=== PATIENT | female | born 1965 | race Caucasian/White ===

== ENCOUNTER 2018-12-25 21:23 | Emergency (ER) | payer BC ==
--- NOTE | 2018-12-25 21:56 | EDM.PDOC ---
ED HPI GENERAL MEDICAL PROBLEM - General Chief Complaint: Chest Pain Stated Complaint: CHEST PAIN THAT RADIATES LEFT SIDE NECK Time Seen by Provider: 12/25/18 21:30 Source of Information: Reports: Patient, Family (Daughter) History Limitations: Reports: No Limitations - History of Present Illness INITIAL COMMENTS - FREE TEXT/NARRATIVE: The patient states that she developed retrosternal chest discomfort, that she describes as a "mild pain", although a discomfort, not a pain, that radiates to her upper left shoulder/left side of her neck, on 12/22/2018. The discomfort comes and goes, lasting only a few seconds, then recurring every 5- 10 minutes to 1 hour. She has not identified any modifiers, such as with position, deep breaths, eating, or going to the bathroom. She notes that the symptoms are less frequent at night. When present, she feels dyspneic, although she denies associated nausea, diaphoresis, or sense of impending doom. She notes , however, that she has had an upset stomach all week, and she also notes that she has been feeling very anxious and shaky all week. No prior similar symptoms. The patient has not taken any [id number] home remedies to try to treat her symptoms. No prior medical evaluation for these symptoms. The patient states that she came tonight, because she discussed her symptoms with her daughter, who is a DESIGN INTERN and her daughter made her come. The patient does not have a PCP. Her Insurance Licensing Supervisor is Dr. Kiya Stoddard. Chest Pain Score (Numeric/FACES): 3 - Related Data Allergies Allergy/AdvReac Type Severity Reaction Status Date / Time Sulfa (Sulfonamide Allergy Rash Verified 12/25/18 22:18 Antibiotics) Home Meds: Home Meds Cholecalciferol (Vitamin D3) [Vitamin D3] 1,000 unit PO DAILY 12/25/18 [History] Cinnamon Bark [Cinnamon] 1 tab PO BID 12/25/18 [History] DULoxetine [Cymbalta] 60 mg PO DAILY 12/25/18 [History] Multivit-Min/Iron/Folic/Lutein [Multivitamin Women 50 Plus Tab] 1 tab PO DAILY 12/25/18 [History] [place]-3/DHA/Epa/Fish Oil [[place] 3 500 Softgel] 1 tab PO BID 12/25/18 [History] Propranolol [Inderal] 120 mg PO DAILY 12/25/18 [History] Vitamin B Complex [B Complex] 1 tab PO BID 12/25/18 [History] Past Medical History HEENT History: Reports: Hard of Hearing (Congenital sensorineural) Musculoskeletal History: Reports: Fracture (right forearm, 2007) Neurological History: Reports: Other (See Below) (Essential tremor) Psychiatric History: Reports: Anxiety, Depression Endocrine/Metabolic History: Reports: Obesity/BMI 30+ - Past Surgical History HEENT Surgical History: Reports: Oral Surgery (wisdom teeth extraction, Dec 2014 ), Tonsillectomy (1988) Neurological Surgical History: Reports: Lumbar Spine (laminectomy and discectomy , Apr 2009) Oncologic Surgical History: Reports: Biopsy of Breast (right, Mar 2015) Social & Family History - Tobacco Use Smoking Status *Q: Never Smoker - Alcohol Use Alcohol Use History: No - Recreational Drug Use Recreational Drug Use: No - Living Situation & Occupation Living situation: Reports: , with Family (Daughter & son) 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 ED EXAM, GENERAL - Physical Exam Exam: See Below Exam Limited By: No Limitations General Appearance: Alert, WD/WN, Anxious Eye Exam: Bilateral Eye: EOMI, Normal Inspection Ears: Normal External Exam, Hearing Loss Nose: Normal Inspection Throat/Mouth: Normal Inspection, Normal Lips, Normal Voice, No Airway Compromise Head: Atraumatic, Normocephalic, Other (Erythema noted to left side of face) Neck: Normal Inspection, Full Range of Motion Respiratory/Chest: No Respiratory Distress, Lungs Clear, Normal Breath Sounds, No Accessory Muscle Use, Chest Non-Tender (palpation of sternum does not reproduce presenting discomfort) Cardiovascular: Normal Peripheral Pulses, Regular Rate, Rhythm, No Edema, No Gallop, No JVD, No Murmur, No Rub Peripheral Pulses: 4+: Radial (L), Radial (R) GI/Abdominal: Normal Bowel Sounds, Soft, Non-Tender, No Organomegaly, No Distention, No Abnormal Bruit, No Mass, Other (Obese) (Female) Exam: Deferred Rectal (Female) Exam: Deferred Back Exam: Normal Inspection, Full Range of Motion, NT Extremities: Normal Inspection, Normal Range of Motion, No Pedal Edema, Normal Capillary Refill Neurological: Alert, Oriented, Normal Cognition, No Motor/Sensory Deficits, Other (Tremulous) Psychiatric: Anxious Skin Exam: Warm, Dry, Intact EKG INTERPRETATION EKG Date: 12/25/18 Time: 21:29 Rhythm: NSR Rate (Beats/Min): 77 [place]: Normal P-Wave: Present QRS: Normal ST-T: Depressed ([address] depression V3-V6, but no T-wave inversions) QT: Prolonged (QTc 499 ms) Comparison: NA - No Prior EKG Course - Vital Signs Last Recorded V/S: Last Vital Signs Temp 36.6 C 12/25/18 21:31 Pulse 76 12/25/18 21:31 Resp 20 12/25/18 21:31 BP 115/73 12/25/18 21:31 Pulse Ox 99 12/25/18 21:31 - Orders/Labs/Meds Orders: Active Orders 24 hr Category Date Time Status EKG Documentation Completion [RC] STAT Care 12/25/18 21:34 Active Chest 2V [CR] Stat Exams 12/25/18 21:54 Taken Labs: Laboratory Tests 12/25/18 12/25/18 12/25/18 Range/Units 21:30 21:30 21:30 WBC 15.14 H (3.98-10.04) K/mm3 RBC 4.93 (3.98-5.22) M/mm3 Hgb 13.5 (11.2-15.7) gm/L Hct 41.2 (34.1-44.9) % MCV 83.6 (79.4-94.8) fl MCH 27.4 (25.6-32.2) pg MCHC 32.8 (32.2-35.5) g/dl RDW Std Deviation 45.3 (36.4-46.3) fL Plt Count 289 (182-369) K/mm3 MPV 9.6 (9.4-12.3) fl Neut % (Auto) 36.4 (34.0-71.1) % Lymph % (Auto) 54.0 H (19.3-51.7) % [place] % (Auto) 7.3 (4.7-12.5) % Eos % (Auto) 1.3 (0.7-5.8) Baso % (Auto) 0.7 (0.1-1.2) % Neut # (Auto) 5.53 (1.56-6.13) K/mm3 Lymph # (Auto) 8.18 H (1.18-3.74) K/mm3 [place] # (Auto) 1.10 H (0.24-0.36) K/mm3 Eos # (Auto) 0.19 (0.04-0.36) K/mm3 Baso # (Auto) 0.10 H (0.01-0.08) K/mm3 Manual Slide Review Abnormal smear D-Dimer, Quantitative 0.40 (0.19-0.50) mg/L Sodium 141 (136-145) mEq/L Potassium 4.1 (3.5-5.1) mEq/L Chloride 105 (98-107) mEq/L Carbon Dioxide 30 (21-32) mEq/L Anion Gap 10.1 (5-15) BUN 18 (7-18) mg/dL Creatinine 1.0 (0.55-1.02) mg/dL Est Cr Clr Drug Dosing 59.51 mL/min Estimated GFR (MDRD) 58 (>60) mL/min BUN/Creatinine Ratio 18.0 (14-18) Glucose 126 H (74-106) mg/dL Calcium 9.4 (8.5-10.1) mg/dL Total Bilirubin 0.6 (0.2-1.0) mg/dL AST 21 (15-37) U/L ALT 26 (14-59) U/L Alkaline Phosphatase 181 H (46-116) U/L Troponin I < 0.017 (0.00-0.056) ng/mL Total Protein 8.0 (6.4-8.2) g/dl Albumin 3.7 (3.4-5.0) g/dl Globulin 4.3 gm/dL Albumin/Globulin Ratio 0.9 L (1-2) - Re-Assessments/Exams Free Text/Narrative Re-Assessment/Exam: 12/25/18 21:55 There are some features of the patient's chest discomfort that are concerning that this may be anginal. Her ECG shows subtle ST depressions in the anterolateral leads, although there are no T-wave inversions. I have ordered a workup that includes blood work and a chest x-ray. 12/25/18 22:29 2-view chest radiograph appears to be grossly normal. The cardiac silhouette is within normal limits. No pulmonary vascular congestion. No pleural effusions. No focal infiltrate. No pneumothorax. Formal read per the Radiologist pending. 12/25/18 22:36 The patient's CBC is remarkable for WBC count mildly elevated at 15.14, with the remainder of the CBC being unremarkable. Her CMP is remarkable for a blood glucose mildly elevated 126, and an alkaline phosphatase mildly elevated 181, with the remainder of the CMP being unremarkable. Her troponin is undetectably low. Her D-dimer is within normal limits at 0.40. 12/25/18 22:43 Test results discussed with the patient and her daughter. Today's workup is unremarkable, and does not explain the cause of her presenting symptoms. I explained to them that just because the workup is negative does not mean that the patient's symptoms are not cardiac in etiology, and for that reason, I offered to place the patient into observation in order to undergo a cardiac stress test tomorrow. The patient would prefer to go home, call the clinic first thing in the morning, then be seen sometime tomorrow, and have an outpatient cardiac stress test. I will therefore discharge the patient home. Departure - Departure Time of Disposition: 22:46 Disposition: Home, Self-Care 01 Condition: Good Clinical Impression: Chest pain of uncertain etiology Instructions: Nonspecific Chest Pain, [id number] Referrals: Jesus Carrizales MD [Physician] - Kiya Stoddard MD [Physician] - Forms: ED Department Discharge Additional Instructions: You were seen in the emergency room for on and off chest discomfort radiating to your left shoulder and neck, along with shortness of breath, coming and going since 12/22/2018. Workup in the ER included blood work, a chest x-ray, and an ECG. Your entire workup was unremarkable, and does not explain the cause of your symptoms. As explained, a negative workup does not mean that your symptoms are not due to your heart. Placement observation for a cardiac stress test tomorrow was offered , but declined. We recommend that you follow-up with Dr. Jimenez, or one of the other providers in the clinic, tomorrow, 12/26/2018, to arrange for an outpatient cardiac stress test. Call first thing tomorrow morning to make an appointment. If any other problems, please do not hesitate to return to the ER. - My Orders Last 24 Hours: My Active Orders 12/25/18 21:34 EKG Documentation Completion [RC] STAT 12/25/18 21:54 Chest 2V [CR] Stat - Assessment/Plan Last 24 Hours: My Active Orders 12/25/18 21:34 EKG Documentation Completion [RC] STAT 12/25/18 21:54 Chest 2V [CR] Stat
--- NOTE | 2018-12-26 08:32 | CR ---
Chest: Two views of the chest were obtained. Comparison: No previous chest x-ray is available. Heart size and mediastinum are normal. Minimal linear density compatible with slight atelectasis is noted within the lateral left costophrenic angle. No acute parenchymal change is seen within either lung. Slight degenerative change is scattered within the spine. Previous cervical spine surgery is noted. Impression: 1. Findings as noted above believed to be incidental. 2. Nothing acute is appreciated. Diagnostic code #2
== END 2018-12-25 23:10 | disposition home or self-care (01) ==
LOC: JD.ED 21:23
DX: R07.89 Other chest pain (principal); F41.9 Anxiety disorder, unspecified; F32.9 Major depressive disorder, single episode, unspecified; Z88.2 Allergy status to sulfonamides; Z79.899 Other long term (current) drug therapy
CPT/HCPCS: 36415; 71046; 71046-26; 80053; 84484; 85025; 85379; 93005; 99285-25

== ENCOUNTER 2020-08-01 12:48 | Inpatient (IN) | payer BC, MEDICAID ==
[2020-08-01] MEDS ORDERED: Sodium Chloride 0.9% 10 ML Syringe FLUSH PRN (13:33)
[2020-08-01] MEDS ORDERED: Sodium Chloride 0.9% 1,000 ML IV SCH (13:45)
--- NOTE | 2020-08-01 14:20 | CR ---
Chest: Portable view of the chest was obtained. Comparison: Prior chest x-ray of 12/25/18. Patchy areas of increased density are seen on both sides of the chest, worse on the right side. Heart size and mediastinum are normal. No acute osseous abnormality is appreciated. Prior cervical spine surgery is noted. Impression: 1. Diffuse areas of increased density on both sides of the chest, worse on the right side. Please correlate if this represents COVID pneumonia. 2. Other stable findings as noted above. Diagnostic code #3
--- NOTE | 2020-08-01 15:11 | EDM.PDOC ---
ED HPI GENERAL MEDICAL PROBLEM - General Chief Complaint: Respiratory Problem Stated Complaint: COVID EXPOSURE Time Seen by Provider: 08/01/20 13:15 Source of Information: Reports: Patient History Limitations: Reports: No Limitations - History of Present Illness INITIAL COMMENTS - FREE TEXT/NARRATIVE: The patient presents with a cough, body aches, fever, chills and generalized weakness. She also has been passing out. She did not hit her head or hurt her neck. She was exposed to someone with COVID 19. She has not been tested. She needed help getting back to the room. She has a history of hearing loss and tremor. She has some nausea. She has not been eating or drinking much. She has no chest pain but she is short of breath. Onset: Gradual Duration: Week(s): Location: Reports: Generalized Quality: Reports: Ache Severity: Moderate Improves with: Reports: None Worsens with: Reports: None Associated Symptoms: Reports: Cough, Fever/Chills, Nausea/Vomiting, Shortness of Breath. Denies: Chest Pain, Headaches - Related Data Allergies Allergy/AdvReac Type Severity Reaction Status Date / Time Sulfa (Sulfonamide Allergy Rash Verified 08/01/20 13:06 Antibiotics) Home Meds: Home Meds Cholecalciferol (Vitamin D3) [Vitamin D3] 1,000 unit PO DAILY 12/25/18 [History] Cinnamon Bark [Cinnamon] 1 tab PO BID 12/25/18 [History] DULoxetine [Cymbalta] 60 mg PO DAILY 12/25/18 [History] Multivit-Min/Iron/Folic/Lutein [Multivitamin Women 50 Plus Tab] 1 tab PO DAILY 12/25/18 [History] [place]-3/DHA/Epa/Fish Oil [[place] 3 500 Softgel] 1 tab PO BID 12/25/18 [History] Propranolol [Inderal] 120 mg PO DAILY 12/25/18 [History] Vitamin B Complex [B Complex] 1 tab PO BID 12/25/18 [History] Past Medical History HEENT History: Reports: Hard of Hearing UNSTACKER History: Reports: Other (See Below) Other UNSTACKER History: benign lumps removed from breast Musculoskeletal History: Reports: Fracture Other Musculoskeletal History: back surgery Neurological History: Reports: Other (See Below) Other Neuro History: familiar tremors Psychiatric History: Reports: Anxiety, Depression Endocrine/Metabolic History: Reports: Obesity/BMI 30+ - Infectious Disease History Infectious Disease History: Reports: Chicken Pox, Influenza - Past Surgical History HEENT Surgical History: Reports: Oral Surgery, Tonsillectomy Neurological Surgical History: Reports: Lumbar Spine Oncologic Surgical History: Reports: Biopsy of Breast Social & Family History - Tobacco Use Tobacco Use Status *Q: Never Tobacco User Second Hand Smoke Exposure: No - Caffeine Use Caffeine Use: Reports: Tea - Recreational Drug Use Recreational Drug Use: No - Living Situation & Occupation Living situation: Reports: , with Family (Daughter & son) 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 Denies: Chest Pain Endocrine: Reports: No Symptoms GI/Abdominal: Reports: Nausea. Denies: Abdominal Pain, Vomiting : Reports: No Symptoms Musculoskeletal: Reports: No Symptoms ED EXAM, GENERAL - Physical Exam Exam: See Below Exam Limited By: No Limitations General Appearance: Alert, No Apparent Distress Ears: Normal External Exam Nose: Normal Inspection Head: Atraumatic, Normocephalic Neck: Normal Inspection Respiratory/Chest: No Respiratory Distress, Normal Breath Sounds, Rhonchi Cardiovascular: Regular Rate, Rhythm, No Edema, No Murmur GI/Abdominal: Soft, Non-Tender, No Organomegaly, No Mass Back Exam: Normal Inspection Extremities: Normal Inspection #1 Interpretation EKG Date: 08/01/20 Time: 14:01 Rhythm: NSR Rate (Beats/Min): 84 [place]: Normal P-Wave: Present QRS: Normal ST-T: Normal QT: Normal Course - Vital Signs Last Recorded V/S: Last Vital Signs Temp 99.3 F 08/01/20 12:58 Pulse 80 08/01/20 12:58 Resp 16 08/01/20 12:58 BP 118/67 08/01/20 12:58 Pulse Ox 100 08/01/20 15:21 - Orders/Labs/Meds Orders: Active Orders 24 hr Category Date Time Status Cardiac Monitoring [RC] . DIRECTED Care 08/01/20 13:33 Active EKG Documentation Completion [RC] STAT Care 08/01/20 13:34 Active Oxygen Therapy [RC] PRN Care 08/01/20 13:33 Active Peripheral IV Care [RC] . DIRECTED Care 08/01/20 13:33 Active Sodium Chloride 0.9% [Normal Saline] 1,000 ml Med 08/01/20 13:45 Active IV .BOLUS Sodium Chloride 0.9% [Saline Flush] Med 08/01/20 13:33 Active 10 ml FLUSH ASDIRECTED PRN Peripheral IV Insertion Adult [OM.PC] Stat Oth 08/01/20 13:33 Ordered Medication Orders Sodium Chloride (Normal Saline) 1,000 mls @ 1,000 mls/hr IV .BOLUS HEMA Last Admin: 08/01/20 13:45 Dose: 1,000 mls/hr Documented by: KJ Sodium Chloride (Sodium Chloride 0.9% 10 Ml Syringe) 10 ml FLUSH ASDIRECTED PRN PRN Reason: Keep Vein Open Last Admin: 08/01/20 13:43 Dose: 10 ml Documented by: KJ Labs: Laboratory Tests 08/01/20 08/01/20 08/01/20 Range/Units 13:13 13:13 13:13 WBC 5.99 (3.98-10.04) K/mm3 RBC 4.41 (3.98-5.22) M/mm3 Hgb 12.0 D (11.2-15.7) gm/dl Hct 38.2 (34.1-44.9) % MCV 86.6 D (79.4-94.8) fl MCH 27.2 (25.6-32.2) pg MCHC 31.4 L (32.2-35.5) g/dl RDW Std Deviation 43.4 (36.4-46.3) fL Plt Count 246 (182-369) K/mm3 MPV 9.8 (9.4-12.3) fl Neut % (Auto) 53.7 (34.0-71.1) % Lymph % (Auto) 31.9 (19.3-51.7) % [place] % (Auto) 13.0 H (4.7-12.5) % Eos % (Auto) 0.8 (0.7-5.8) Baso % (Auto) 0.3 (0.1-1.2) % Neut # (Auto) 3.21 (1.56-6.13) K/mm3 Lymph # (Auto) 1.91 (1.18-3.74) K/mm3 [place] # (Auto) 0.78 H (0.24-0.36) K/mm3 Eos # (Auto) 0.05 (0.04-0.36) K/mm3 Baso # (Auto) 0.02 (0.01-0.08) K/mm3 PT 10.9 (9.7-12.0) SECONDS INR 1.02 APTT 28.0 (21.7-31.4) SECONDS D-Dimer, Quantitative 0.46 (0.19-0.50) mg/L Sodium 134 L (136-145) mEq/L Potassium 4.6 (3.5-5.1) mEq/L Chloride 96 L (98-107) mEq/L Carbon Dioxide 29 (21-32) mEq/L Anion Gap 13.6 (5-15) BUN 18 (7-18) mg/dL Creatinine 1.1 H (0.55-1.02) mg/dL Est Cr Clr Drug Dosing 52.82 mL/min Estimated GFR (MDRD) 51 (>60) mL/min BUN/Creatinine Ratio 16.4 (14-18) Glucose 136 H (74-106) mg/dL Lactic Acid (0.4-2.0) mmol/L Calcium 8.6 (8.5-10.1) mg/dL Magnesium 2.0 (1.8-2.4) mg/dl Ferritin (8-252) ng/ml Total Bilirubin 0.7 (0.2-1.0) mg/dL AST 36 (15-37) U/L ALT 40 (14-59) U/L Alkaline Phosphatase 119 H (46-116) U/L Lactate Dehydrogenase 258 H (81-234) U/L C-Reactive Protein 15.2 H* (<1.0) mg/dL Total Protein 7.3 (6.4-8.2) g/dl Albumin 2.8 L (3.4-5.0) g/dl Globulin 4.5 gm/dL Albumin/Globulin Ratio 0.6 L (1-2) Urine Color (Yellow) Urine Appearance (Clear) Urine pH (5.0-8.0) Ur Specific [place] (1.005-1.030) Urine Protein (Negative) Urine Glucose (UA) (Negative) Urine Ketones (Negative) Urine Occult Blood (Negative) Urine Nitrite (Negative) Urine Bilirubin (Negative) Urine Urobilinogen (0.2-1.0) Ur Leukocyte Esterase (Negative) Urine RBC (0-5) /hpf Urine WBC (0-5) /hpf Ur Epithelial Cells (0-5) /hpf Urine Bacteria (FEW) /hpf Urine Mucus (FEW) /hpf SARS-CoV-2 RNA (CURTIS) (NEGATIVE) 08/01/20 08/01/20 08/01/20 Range/Units 13:13 13:46 13:59 WBC (3.98-10.04) K/mm3 RBC (3.98-5.22) M/mm3 Hgb (11.2-15.7) gm/dl Hct (34.1-44.9) % MCV (79.4-94.8) fl MCH (25.6-32.2) pg MCHC (32.2-35.5) g/dl RDW Std Deviation (36.4-46.3) fL Plt Count (182-369) K/mm3 MPV (9.4-12.3) fl Neut % (Auto) (34.0-71.1) % Lymph % (Auto) (19.3-51.7) % [place] % (Auto) (4.7-12.5) % Eos % (Auto) (0.7-5.8) Baso % (Auto) (0.1-1.2) % Neut # (Auto) (1.56-6.13) K/mm3 Lymph # (Auto) (1.18-3.74) K/mm3 [place] # (Auto) (0.24-0.36) K/mm3 Eos # (Auto) (0.04-0.36) K/mm3 Baso # (Auto) (0.01-0.08) K/mm3 PT (9.7-12.0) SECONDS INR APTT (21.7-31.4) SECONDS D-Dimer, Quantitative (0.19-0.50) mg/L Sodium (136-145) mEq/L Potassium (3.5-5.1) mEq/L Chloride (98-107) mEq/L Carbon Dioxide (21-32) mEq/L Anion Gap (5-15) BUN (7-18) mg/dL Creatinine (0.55-1.02) mg/dL Est Cr Clr Drug Dosing mL/min Estimated GFR (MDRD) (>60) mL/min BUN/Creatinine Ratio (14-18) Glucose (74-106) mg/dL Lactic Acid 1.6 (0.4-2.0) mmol/L Calcium (8.5-10.1) mg/dL Magnesium (1.8-2.4) mg/dl Ferritin 133 (8-252) ng/ml Total Bilirubin (0.2-1.0) mg/dL AST (15-37) U/L ALT (14-59) U/L Alkaline Phosphatase (46-116) U/L Lactate Dehydrogenase (81-234) U/L C-Reactive Protein (<1.0) mg/dL Total Protein (6.4-8.2) g/dl Albumin (3.4-5.0) g/dl Globulin gm/dL Albumin/Globulin Ratio (1-2) Urine Color (Yellow) Urine Appearance (Clear) Urine pH (5.0-8.0) Ur Specific [place] (1.005-1.030) Urine Protein (Negative) Urine Glucose (UA) (Negative) Urine Ketones (Negative) Urine Occult Blood (Negative) Urine Nitrite (Negative) Urine Bilirubin (Negative) Urine Urobilinogen (0.2-1.0) Ur Leukocyte Esterase (Negative) Urine RBC (0-5) /hpf Urine WBC (0-5) /hpf Ur Epithelial Cells (0-5) /hpf Urine Bacteria (FEW) /hpf Urine Mucus (FEW) /hpf SARS-CoV-2 RNA (CURTIS) Positive H (NEGATIVE) 08/01/20 Range/Units 15:10 WBC (3.98-10.04) K/mm3 RBC (3.98-5.22) M/mm3 Hgb (11.2-15.7) gm/dl Hct (34.1-44.9) % MCV (79.4-94.8) fl MCH (25.6-32.2) pg MCHC (32.2-35.5) g/dl RDW Std Deviation (36.4-46.3) fL Plt Count (182-369) K/mm3 MPV (9.4-12.3) fl Neut % (Auto) (34.0-71.1) % Lymph % (Auto) (19.3-51.7) % [place] % (Auto) (4.7-12.5) % Eos % (Auto) (0.7-5.8) Baso % (Auto) (0.1-1.2) % Neut # (Auto) (1.56-6.13) K/mm3 Lymph # (Auto) (1.18-3.74) K/mm3 [place] # (Auto) (0.24-0.36) K/mm3 Eos # (Auto) (0.04-0.36) K/mm3 Baso # (Auto) (0.01-0.08) K/mm3 PT (9.7-12.0) SECONDS INR APTT (21.7-31.4) SECONDS D-Dimer, Quantitative (0.19-0.50) mg/L Sodium (136-145) mEq/L Potassium (3.5-5.1) mEq/L Chloride (98-107) mEq/L Carbon Dioxide (21-32) mEq/L Anion Gap (5-15) BUN (7-18) mg/dL Creatinine (0.55-1.02) mg/dL Est Cr Clr Drug Dosing mL/min Estimated GFR (MDRD) (>60) mL/min BUN/Creatinine Ratio (14-18) Glucose (74-106) mg/dL Lactic Acid (0.4-2.0) mmol/L Calcium (8.5-10.1) mg/dL Magnesium (1.8-2.4) mg/dl Ferritin (8-252) ng/ml Total Bilirubin (0.2-1.0) mg/dL AST (15-37) U/L ALT (14-59) U/L Alkaline Phosphatase (46-116) U/L Lactate Dehydrogenase (81-234) U/L C-Reactive Protein (<1.0) mg/dL Total Protein (6.4-8.2) g/dl Albumin (3.4-5.0) g/dl Globulin gm/dL Albumin/Globulin Ratio (1-2) Urine Color Dark yellow (Yellow) Urine Appearance Slt cloudy H (Clear) Urine pH 6.0 (5.0-8.0) Ur Specific [place] 1.025 (1.005-1.030) Urine Protein 1+ H (Negative) Urine Glucose (UA) Negative (Negative) Urine Ketones Negative (Negative) Urine Occult Blood Negative (Negative) Urine Nitrite Negative (Negative) Urine Bilirubin Negative (Negative) Urine Urobilinogen 1.0 (0.2-1.0) Ur Leukocyte Esterase 1+ H (Negative) Urine RBC 5-10 H (0-5) /hpf Urine WBC 10-20 H (0-5) /hpf Ur Epithelial Cells 5-10 H (0-5) /hpf Urine Bacteria Moderate H (FEW) /hpf Urine Mucus Few (FEW) /hpf SARS-CoV-2 RNA (CURTIS) (NEGATIVE) Meds: Medications Generic Name Dose Route Start Last Admin Trade Name Freq PRN Reason Stop Dose Admin Sodium Chloride 1,000 mls @ 1,000 mls/hr 08/01/20 13:45 08/01/20 13:45 Normal Saline IV 1,000 mls/hr .BOLUS HEMA Administration Sodium Chloride 10 ml 08/01/20 13:33 08/01/20 13:43 Sodium Chloride 0.9% 10 Ml Syringe FLUSH 10 ml ASDIRECTED PRN Administration Keep Vein Open - Re-Assessments/Exams Free Text/Narrative Re-Assessment/Exam: 08/01/20 15:11 I ordered a CXR, labs, IV NS bolus. 08/01/20 16:05 Her CBC looks good. Her D-dimer is negative. Her PT and PTT look good. Her Na is low at 134. Her creatinine is 1.1. Her glucose is 136. Her lactic acid is normal. Her CRP is 15.2. Her alk phos is elevated at 114. Her LDH is elevated at 258. Her CXR shows diffuse areas of increased density on both sides of the chest worse on the right side. Please correlate if this represents COVID pneumonia. She was COVID 19 positive. 08/01/20 16:11 She gave us a urine sample. When she got up to use the camode her oxygen saturations dropped to 84%. I feel she needs to be admitted. I called Dr Paris and he agreed to the admission. I ordered remdesivir and dexamethasone. Departure - Departure Time of Disposition: 16:15 Disposition: Admitted As Inpatient 64 Condition: Fair Clinical Impression: Hypoxia, COVID-19, Pneumonia due to COVID-19 virus - Discharge Information Referrals: PCP,None [Primary Care Provider] - Forms: ED Department Discharge Sepsis Event Note (ED) - Evaluation Sepsis Screening Result: No Definite Risk - Focused Exam Vital Signs: Vital Signs Temp Pulse Resp BP Pulse Ox Pulse Ox 08/01/20 15:21 100 08/01/20 12:58 99.3 F 80 16 118/67 100 - My Orders Last 24 Hours: My Active Orders 08/01/20 13:33 Cardiac Monitoring [RC] . DIRECTED Oxygen Therapy [RC] PRN Peripheral IV Care [RC] . DIRECTED Sodium Chloride 0.9% [Saline Flush] 10 ml FLUSH ASDIRECTED PRN Peripheral IV Insertion Adult [OM.PC] Stat 08/01/20 13:34 EKG Documentation Completion [RC] STAT 08/01/20 13:45 Sodium Chloride 0.9% [Normal Saline] 1,000 ml IV .BOLUS - Assessment/Plan Last 24 Hours: My Active Orders 08/01/20 13:33 Cardiac Monitoring [RC] . DIRECTED Oxygen Therapy [RC] PRN Peripheral IV Care [RC] . DIRECTED Sodium Chloride 0.9% [Saline Flush] 10 ml FLUSH ASDIRECTED PRN Peripheral IV Insertion Adult [OM.PC] Stat 08/01/20 13:34 EKG Documentation Completion [RC] STAT 08/01/20 13:45 Sodium Chloride 0.9% [Normal Saline] 1,000 ml IV .BOLUS
[2020-08-01] MEDS ORDERED: REMDESIVIR 200 MG in Sodium Chloride 0.9% 250 ML IV ONE ×2 (16:10→16:45)
[2020-08-01] MEDS ORDERED: Dexamethasone 4 MG/ML SDV IVPUSH ONE (16:10)
[2020-08-01] MEDS ORDERED: Acetaminophen 325 MG Tab PO PRN (17:25)
[2020-08-01] MEDS ORDERED: Ondansetron 4 MG/2 ML SDV IV PRN (17:25)
[2020-08-01] MEDS ORDERED: Ibuprofen 600 MG Tab PO PRN (17:25)
[2020-08-01] MEDS ORDERED: Benzonatate 100 MG Cap PO PRN (17:35)
[2020-08-01] MEDS ORDERED: Codeine/guaiFENesin 10-100 MG/5 ML Syrup 5 ML Cup PO PRN (17:35)
[2020-08-01] MEDS ORDERED: Albuterol 6.7 GM Inhaler INH PRN (17:36)
[2020-08-01] MEDS: Cholecalciferol (Vitamin D3) 5,000 UNIT Cap PO SCH (18:29)
[2020-08-01] MEDS: Aspirin 325 MG Tab.EC PO SCH (18:29)
[2020-08-01] MEDS: cefTRIAXone 2 GM in Sodium Chloride 0.9% 100 ML IV SCH (18:29)
[2020-08-01] MEDS: Zinc Sulfate 220 MG Cap PO SCH (18:29)
--- NOTE | 2020-08-01 19:05 | PCM.PN ---
- General Info Date of Service: 08/01/20 Admission Dx/Problem (Free Text): COVID-19 positive test (U07.1, COVID-19) with Acute Pneumonia (J12.89, Other viral pneumonia) Subjective Update: 55-year-old female with 2-week history of cough, body aches, fever, chills, generalized weakness. Patient states that she was exposed to a family with Covid approximately that time. Recent she is coughed so hard that she has been passing out. She has not had any head or neck injury secondary to falls. She has decreased appetite and some nausea. She denies any chest pain, shortness of breath, or palpitations. Generalized malaise and weakness has become severe over the last few days. Functional Status: Reports: Pain Controlled - Review of Systems General: Reports: Weakness, Fatigue HEENT: Reports: No Symptoms Pulmonary: Reports: No Symptoms Cardiovascular: Reports: No Symptoms Gastrointestinal: Reports: No Symptoms Skin: Reports: No Symptoms Neurological: Reports: No Symptoms Psychiatric: Reports: No Symptoms - Patient Data Vitals - Most Recent: Last Vital Signs Temp 99.3 F 08/01/20 17:57 Pulse 80 08/01/20 17:57 Resp 20 08/01/20 17:57 BP 112/48 L 08/01/20 17:57 Pulse Ox 100 08/01/20 17:57 Weight - Most Recent: 187 lb Lab Results Last 24 Hours: Laboratory Results - last 24 hr 08/01/20 08/01/20 08/01/20 Range/Units 13:13 13:13 13:13 WBC 5.99 (3.98-10.04) K/mm3 RBC 4.41 (3.98-5.22) M/mm3 Hgb 12.0 D (11.2-15.7) gm/dl Hct 38.2 (34.1-44.9) % MCV 86.6 D (79.4-94.8) fl MCH 27.2 (25.6-32.2) pg MCHC 31.4 L (32.2-35.5) g/dl RDW Std Deviation 43.4 (36.4-46.3) fL Plt Count 246 (182-369) K/mm3 MPV 9.8 (9.4-12.3) fl Neut % (Auto) 53.7 (34.0-71.1) % Lymph % (Auto) 31.9 (19.3-51.7) % Bailey % (Auto) 13.0 H (4.7-12.5) % Eos % (Auto) 0.8 (0.7-5.8) Baso % (Auto) 0.3 (0.1-1.2) % Neut # (Auto) 3.21 (1.56-6.13) K/mm3 Lymph # (Auto) 1.91 (1.18-3.74) K/mm3 Bailey # (Auto) 0.78 H (0.24-0.36) K/mm3 Eos # (Auto) 0.05 (0.04-0.36) K/mm3 Baso # (Auto) 0.02 (0.01-0.08) K/mm3 PT 10.9 (9.7-12.0) SECONDS INR 1.02 APTT 28.0 (21.7-31.4) SECONDS D-Dimer, Quantitative 0.46 (0.19-0.50) mg/L Sodium 134 L (136-145) mEq/L Potassium 4.6 (3.5-5.1) mEq/L Chloride 96 L (98-107) mEq/L Carbon Dioxide 29 (21-32) mEq/L Anion Gap 13.6 (5-15) BUN 18 (7-18) mg/dL Creatinine 1.1 H (0.55-1.02) mg/dL Est Cr Clr Drug Dosing 52.82 mL/min Estimated GFR (MDRD) 51 (>60) mL/min BUN/Creatinine Ratio 16.4 (14-18) Glucose 136 H (74-106) mg/dL Lactic Acid (0.4-2.0) mmol/L Calcium 8.6 (8.5-10.1) mg/dL Magnesium 2.0 (1.8-2.4) mg/dl Ferritin (8-252) ng/ml Total Bilirubin 0.7 (0.2-1.0) mg/dL Direct Bilirubin (0.0-0.2) mg/dl Indirect Bilirubin AST 36 (15-37) U/L ALT 40 (14-59) U/L Alkaline Phosphatase 119 H (46-116) U/L Lactate Dehydrogenase 258 H (81-234) U/L C-Reactive Protein 15.2 H* (<1.0) mg/dL Total Protein 7.3 (6.4-8.2) g/dl Albumin 2.8 L (3.4-5.0) g/dl Globulin 4.5 gm/dL Albumin/Globulin Ratio 0.6 L (1-2) Urine Color (Yellow) Urine Appearance (Clear) Urine pH (5.0-8.0) Ur Specific [place] (1.005-1.030) Urine Protein (Negative) Urine Glucose (UA) (Negative) Urine Ketones (Negative) Urine Occult Blood (Negative) Urine Nitrite (Negative) Urine Bilirubin (Negative) Urine Urobilinogen (0.2-1.0) Ur Leukocyte Esterase (Negative) Urine RBC (0-5) /hpf Urine WBC (0-5) /hpf Ur Epithelial Cells (0-5) /hpf Urine Bacteria (FEW) /hpf Urine Mucus (FEW) /hpf SARS-CoV-2 RNA (CURTIS) (NEGATIVE) 08/01/20 08/01/20 08/01/20 Range/Units 13:13 13:13 13:46 WBC (3.98-10.04) K/mm3 RBC (3.98-5.22) M/mm3 Hgb (11.2-15.7) gm/dl Hct (34.1-44.9) % MCV (79.4-94.8) fl MCH (25.6-32.2) pg MCHC (32.2-35.5) g/dl RDW Std Deviation (36.4-46.3) fL Plt Count (182-369) K/mm3 MPV (9.4-12.3) fl Neut % (Auto) (34.0-71.1) % Lymph % (Auto) (19.3-51.7) % Bailey % (Auto) (4.7-12.5) % Eos % (Auto) (0.7-5.8) Baso % (Auto) (0.1-1.2) % Neut # (Auto) (1.56-6.13) K/mm3 Lymph # (Auto) (1.18-3.74) K/mm3 Bailey # (Auto) (0.24-0.36) K/mm3 Eos # (Auto) (0.04-0.36) K/mm3 Baso # (Auto) (0.01-0.08) K/mm3 PT (9.7-12.0) SECONDS INR APTT (21.7-31.4) SECONDS D-Dimer, Quantitative (0.19-0.50) mg/L Sodium (136-145) mEq/L Potassium (3.5-5.1) mEq/L Chloride (98-107) mEq/L Carbon Dioxide (21-32) mEq/L Anion Gap (5-15) BUN (7-18) mg/dL Creatinine (0.55-1.02) mg/dL Est Cr Clr Drug Dosing mL/min Estimated GFR (MDRD) (>60) mL/min BUN/Creatinine Ratio (14-18) Glucose (74-106) mg/dL Lactic Acid (0.4-2.0) mmol/L Calcium (8.5-10.1) mg/dL Magnesium (1.8-2.4) mg/dl Ferritin 133 (8-252) ng/ml Total Bilirubin 0.7 (0.2-1.0) mg/dL Direct Bilirubin 0.10 (0.0-0.2) mg/dl Indirect Bilirubin 0.60 AST 40 H (15-37) U/L ALT 41 (14-59) U/L Alkaline Phosphatase 120 H (46-116) U/L Lactate Dehydrogenase (81-234) U/L C-Reactive Protein (<1.0) mg/dL Total Protein 7.4 (6.4-8.2) g/dl Albumin 2.8 L (3.4-5.0) g/dl Globulin 4.6 gm/dL Albumin/Globulin Ratio 0.6 L (1-2) Urine Color (Yellow) Urine Appearance (Clear) Urine pH (5.0-8.0) Ur Specific [place] (1.005-1.030) Urine Protein (Negative) Urine Glucose (UA) (Negative) Urine Ketones (Negative) Urine Occult Blood (Negative) Urine Nitrite (Negative) Urine Bilirubin (Negative) Urine Urobilinogen (0.2-1.0) Ur Leukocyte Esterase (Negative) Urine RBC (0-5) /hpf Urine WBC (0-5) /hpf Ur Epithelial Cells (0-5) /hpf Urine Bacteria (FEW) /hpf Urine Mucus (FEW) /hpf SARS-CoV-2 RNA (CURTIS) Positive H (NEGATIVE) 08/01/20 08/01/20 Range/Units 13:59 15:10 WBC (3.98-10.04) K/mm3 RBC (3.98-5.22) M/mm3 Hgb (11.2-15.7) gm/dl Hct (34.1-44.9) % MCV (79.4-94.8) fl MCH (25.6-32.2) pg MCHC (32.2-35.5) g/dl RDW Std Deviation (36.4-46.3) fL Plt Count (182-369) K/mm3 MPV (9.4-12.3) fl Neut % (Auto) (34.0-71.1) % Lymph % (Auto) (19.3-51.7) % Bailey % (Auto) (4.7-12.5) % Eos % (Auto) (0.7-5.8) Baso % (Auto) (0.1-1.2) % Neut # (Auto) (1.56-6.13) K/mm3 Lymph # (Auto) (1.18-3.74) K/mm3 Bailey # (Auto) (0.24-0.36) K/mm3 Eos # (Auto) (0.04-0.36) K/mm3 Baso # (Auto) (0.01-0.08) K/mm3 PT (9.7-12.0) SECONDS INR APTT (21.7-31.4) SECONDS D-Dimer, Quantitative (0.19-0.50) mg/L Sodium (136-145) mEq/L Potassium (3.5-5.1) mEq/L Chloride (98-107) mEq/L Carbon Dioxide (21-32) mEq/L Anion Gap (5-15) BUN (7-18) mg/dL Creatinine (0.55-1.02) mg/dL Est Cr Clr Drug Dosing mL/min Estimated GFR (MDRD) (>60) mL/min BUN/Creatinine Ratio (14-18) Glucose (74-106) mg/dL Lactic Acid 1.6 (0.4-2.0) mmol/L Calcium (8.5-10.1) mg/dL Magnesium (1.8-2.4) mg/dl Ferritin (8-252) ng/ml Total Bilirubin (0.2-1.0) mg/dL Direct Bilirubin (0.0-0.2) mg/dl Indirect Bilirubin AST (15-37) U/L ALT (14-59) U/L Alkaline Phosphatase (46-116) U/L Lactate Dehydrogenase (81-234) U/L C-Reactive Protein (<1.0) mg/dL Total Protein (6.4-8.2) g/dl Albumin (3.4-5.0) g/dl Globulin gm/dL Albumin/Globulin Ratio (1-2) Urine Color Dark yellow (Yellow) Urine Appearance Slt cloudy H (Clear) Urine pH 6.0 (5.0-8.0) Ur Specific [place] 1.025 (1.005-1.030) Urine Protein 1+ H (Negative) Urine Glucose (UA) Negative (Negative) Urine Ketones Negative (Negative) Urine Occult Blood Negative (Negative) Urine Nitrite Negative (Negative) Urine Bilirubin Negative (Negative) Urine Urobilinogen 1.0 (0.2-1.0) Ur Leukocyte Esterase 1+ H (Negative) Urine RBC 5-10 H (0-5) /hpf Urine WBC 10-20 H (0-5) /hpf Ur Epithelial Cells 5-10 H (0-5) /hpf Urine Bacteria Moderate H (FEW) /hpf Urine Mucus Few (FEW) /hpf SARS-CoV-2 RNA (CURTIS) (NEGATIVE) Med Orders - Current: Current Medications Acetaminophen (Acetaminophen 325 Mg Tab) 650 mg PO Q4H PRN PRN Reason: Pain (Mild 1-3)/fever Albuterol (Albuterol 6.7 Gm Inhaler) 0 gm INH Q2H PRN PRN Reason: Shortness of Breath Aspirin (Aspirin 325 Mg Tab.Ec) 325 mg PO DAILY [facility] Last Admin: 08/01/20 18:29 Dose: 325 mg Documented by: Benzonatate (Benzonatate 100 Mg Cap) 100 mg PO QID PRN PRN Reason: Cough Cholecalciferol (Cholecalciferol (Vitamin D3) 5,000 Unit Cap) 5,000 unit PO DAILY [facility] Last Admin: 08/01/20 18:29 Dose: 5,000 unit Documented by: Dexamethasone (Dexamethasone 4 Mg Tab) 6 mg PO DAILY [facility] Stop: 08/10/20 09:01 Enoxaparin Sodium (Enoxaparin 40 Mg/0.4 Ml Syringe) 40 mg SUBCUT DAILY [facility] Famotidine (Famotidine 20 Mg Tab) 20 mg PO BID [facility] Guaifenesin/Codeine Phosphate (Codeine/Guaifenesin 10-100 Mg/5 Ml Syrup 5 Ml Cup) 5 ml PO Q4H PRN PRN Reason: Cough Remdesivir 100 mg/ Sodium (Chloride) 100 mls @ 100 mls/hr IV DAILY [facility] Stop: 08/05/20 09:59 Ceftriaxone Sodium 2 gm/ (Sodium Chloride) 100 mls @ 200 mls/hr IV Q24H [facility] Stop: 08/05/20 18:14 Last Admin: 08/01/20 18:29 Dose: 200 mls/hr Documented by: Azithromycin 500 mg/ Sodium (Chloride) 250 mls @ 250 mls/hr IV Q24H [facility] Stop: 08/03/20 18:44 Ibuprofen (Ibuprofen 600 Mg Tab) 600 mg PO Q6H PRN PRN Reason: Pain (moderate 4-6) Melatonin (Melatonin 3 Mg Tab) 9 mg PO BEDTIME [facility] Ondansetron HCl (Ondansetron 4 Mg/2 Ml Sdv) 4 mg IV Q4H PRN PRN Reason: Nausea/Vomiting Sodium Chloride (Sodium Chloride 0.9% 10 Ml Syringe) 10 ml FLUSH ASDIRECTED PRN PRN Reason: Keep Vein Open Last Admin: 08/01/20 13:43 Dose: 10 ml Documented by: Zinc Sulfate (Zinc Sulfate 220 Mg Cap) 220 mg PO DAILY [facility] Last Admin: 08/01/20 18:29 Dose: 220 mg Documented by: Discontinued Medications Dexamethasone (Dexamethasone 4 Mg/Ml Sdv) 6 mg IVPUSH ONETIME ONE Stop: 08/01/20 16:11 Last Admin: 08/01/20 16:46 Dose: 6 mg Documented by: Sodium Chloride (Normal Saline) 1,000 mls @ 1,000 mls/hr IV .BOLUS [facility] Last Admin: 08/01/20 13:45 Dose: 1,000 mls/hr Documented by: Remdesivir 200 mg/ Sodium (Chloride) 250 mls @ 250 mls/hr IV ONETIME ONE Stop: 08/01/20 17:44 Last Admin: 08/01/20 16:49 Dose: 250 mls/hr Documented by: - Exam Quality Assessment: Supplemental Oxygen General: Alert, Oriented HEENT: Pupils Equal, Mucous Membr. Moist/[place] Neck: Supple Lungs: Crackles (Bibasilar). No: Normal Respiratory Effort (Increased respiratory rate) Cardiovascular: Regular Rate, Regular Rhythm GI/Abdominal Exam: Normal Bowel Sounds, Soft, Non-Tender, No Organomegaly, No Distention, No Abnormal Bruit Back Exam: Normal Inspection Extremities: Normal Inspection, Normal Range of Motion, Non-Tender, No Pedal Edema, Normal Capillary Refill Skin: Warm, Dry, Intact Psy/Mental Status: Alert, Normal Affect, Normal Mood - Patient Data Lab Results Last 24 hrs: Laboratory Results - last 24 hr 08/01/20 08/01/20 08/01/20 Range/Units 13:13 13:13 13:13 WBC 5.99 (3.98-10.04) K/mm3 RBC 4.41 (3.98-5.22) M/mm3 Hgb 12.0 D (11.2-15.7) gm/dl Hct 38.2 (34.1-44.9) % MCV 86.6 D (79.4-94.8) fl MCH 27.2 (25.6-32.2) pg MCHC 31.4 L (32.2-35.5) g/dl RDW Std Deviation 43.4 (36.4-46.3) fL Plt Count 246 (182-369) K/mm3 MPV 9.8 (9.4-12.3) fl Neut % (Auto) 53.7 (34.0-71.1) % Lymph % (Auto) 31.9 (19.3-51.7) % Bailey % (Auto) 13.0 H (4.7-12.5) % Eos % (Auto) 0.8 (0.7-5.8) Baso % (Auto) 0.3 (0.1-1.2) % Neut # (Auto) 3.21 (1.56-6.13) K/mm3 Lymph # (Auto) 1.91 (1.18-3.74) K/mm3 Bailey # (Auto) 0.78 H (0.24-0.36) K/mm3 Eos # (Auto) 0.05 (0.04-0.36) K/mm3 Baso # (Auto) 0.02 (0.01-0.08) K/mm3 PT 10.9 (9.7-12.0) SECONDS INR 1.02 APTT 28.0 (21.7-31.4) SECONDS D-Dimer, Quantitative 0.46 (0.19-0.50) mg/L Sodium 134 L (136-145) mEq/L Potassium 4.6 (3.5-5.1) mEq/L Chloride 96 L (98-107) mEq/L Carbon Dioxide 29 (21-32) mEq/L Anion Gap 13.6 (5-15) BUN 18 (7-18) mg/dL Creatinine 1.1 H (0.55-1.02) mg/dL Est Cr Clr Drug Dosing 52.82 mL/min Estimated GFR (MDRD) 51 (>60) mL/min BUN/Creatinine Ratio 16.4 (14-18) Glucose 136 H (74-106) mg/dL Lactic Acid (0.4-2.0) mmol/L Calcium 8.6 (8.5-10.1) mg/dL Magnesium 2.0 (1.8-2.4) mg/dl Ferritin (8-252) ng/ml Total Bilirubin 0.7 (0.2-1.0) mg/dL Direct Bilirubin (0.0-0.2) mg/dl Indirect Bilirubin AST 36 (15-37) U/L ALT 40 (14-59) U/L Alkaline Phosphatase 119 H (46-116) U/L Lactate Dehydrogenase 258 H (81-234) U/L C-Reactive Protein 15.2 H* (<1.0) mg/dL Total Protein 7.3 (6.4-8.2) g/dl Albumin 2.8 L (3.4-5.0) g/dl Globulin 4.5 gm/dL Albumin/Globulin Ratio 0.6 L (1-2) Urine Color (Yellow) Urine Appearance (Clear) Urine pH (5.0-8.0) Ur Specific [place] (1.005-1.030) Urine Protein (Negative) Urine Glucose (UA) (Negative) Urine Ketones (Negative) Urine Occult Blood (Negative) Urine Nitrite (Negative) Urine Bilirubin (Negative) Urine Urobilinogen (0.2-1.0) Ur Leukocyte Esterase (Negative) Urine RBC (0-5) /hpf Urine WBC (0-5) /hpf Ur Epithelial Cells (0-5) /hpf Urine Bacteria (FEW) /hpf Urine Mucus (FEW) /hpf SARS-CoV-2 RNA (CURTIS) (NEGATIVE) 08/01/20 08/01/20 08/01/20 Range/Units 13:13 13:13 13:46 WBC (3.98-10.04) K/mm3 RBC (3.98-5.22) M/mm3 Hgb (11.2-15.7) gm/dl Hct (34.1-44.9) % MCV (79.4-94.8) fl MCH (25.6-32.2) pg MCHC (32.2-35.5) g/dl RDW Std Deviation (36.4-46.3) fL Plt Count (182-369) K/mm3 MPV (9.4-12.3) fl Neut % (Auto) (34.0-71.1) % Lymph % (Auto) (19.3-51.7) % Bailey % (Auto) (4.7-12.5) % Eos % (Auto) (0.7-5.8) Baso % (Auto) (0.1-1.2) % Neut # (Auto) (1.56-6.13) K/mm3 Lymph # (Auto) (1.18-3.74) K/mm3 Bailey # (Auto) (0.24-0.36) K/mm3 Eos # (Auto) (0.04-0.36) K/mm3 Baso # (Auto) (0.01-0.08) K/mm3 PT (9.7-12.0) SECONDS INR APTT (21.7-31.4) SECONDS D-Dimer, Quantitative (0.19-0.50) mg/L Sodium (136-145) mEq/L Potassium (3.5-5.1) mEq/L Chloride (98-107) mEq/L Carbon Dioxide (21-32) mEq/L Anion Gap (5-15) BUN (7-18) mg/dL Creatinine (0.55-1.02) mg/dL Est Cr Clr Drug Dosing mL/min Estimated GFR (MDRD) (>60) mL/min BUN/Creatinine Ratio (14-18) Glucose (74-106) mg/dL Lactic Acid (0.4-2.0) mmol/L Calcium (8.5-10.1) mg/dL Magnesium (1.8-2.4) mg/dl Ferritin 133 (8-252) ng/ml Total Bilirubin 0.7 (0.2-1.0) mg/dL Direct Bilirubin 0.10 (0.0-0.2) mg/dl Indirect Bilirubin 0.60 AST 40 H (15-37) U/L ALT 41 (14-59) U/L Alkaline Phosphatase 120 H (46-116) U/L Lactate Dehydrogenase (81-234) U/L C-Reactive Protein (<1.0) mg/dL Total Protein 7.4 (6.4-8.2) g/dl Albumin 2.8 L (3.4-5.0) g/dl Globulin 4.6 gm/dL Albumin/Globulin Ratio 0.6 L (1-2) Urine Color (Yellow) Urine Appearance (Clear) Urine pH (5.0-8.0) Ur Specific [place] (1.005-1.030) Urine Protein (Negative) Urine Glucose (UA) (Negative) Urine Ketones (Negative) Urine Occult Blood (Negative) Urine Nitrite (Negative) Urine Bilirubin (Negative) Urine Urobilinogen (0.2-1.0) Ur Leukocyte Esterase (Negative) Urine RBC (0-5) /hpf Urine WBC (0-5) /hpf Ur Epithelial Cells (0-5) /hpf Urine Bacteria (FEW) /hpf Urine Mucus (FEW) /hpf SARS-CoV-2 RNA (CURTIS) Positive H (NEGATIVE) 08/01/20 08/01/20 Range/Units 13:59 15:10 WBC (3.98-10.04) K/mm3 RBC (3.98-5.22) M/mm3 Hgb (11.2-15.7) gm/dl Hct (34.1-44.9) % MCV (79.4-94.8) fl MCH (25.6-32.2) pg MCHC (32.2-35.5) g/dl RDW Std Deviation (36.4-46.3) fL Plt Count (182-369) K/mm3 MPV (9.4-12.3) fl Neut % (Auto) (34.0-71.1) % Lymph % (Auto) (19.3-51.7) % Bailey % (Auto) (4.7-12.5) % Eos % (Auto) (0.7-5.8) Baso % (Auto) (0.1-1.2) % Neut # (Auto) (1.56-6.13) K/mm3 Lymph # (Auto) (1.18-3.74) K/mm3 Bailey # (Auto) (0.24-0.36) K/mm3 Eos # (Auto) (0.04-0.36) K/mm3 Baso # (Auto) (0.01-0.08) K/mm3 PT (9.7-12.0) SECONDS INR APTT (21.7-31.4) SECONDS D-Dimer, Quantitative (0.19-0.50) mg/L Sodium (136-145) mEq/L Potassium (3.5-5.1) mEq/L Chloride (98-107) mEq/L Carbon Dioxide (21-32) mEq/L Anion Gap (5-15) BUN (7-18) mg/dL Creatinine (0.55-1.02) mg/dL Est Cr Clr Drug Dosing mL/min Estimated GFR (MDRD) (>60) mL/min BUN/Creatinine Ratio (14-18) Glucose (74-106) mg/dL Lactic Acid 1.6 (0.4-2.0) mmol/L Calcium (8.5-10.1) mg/dL Magnesium (1.8-2.4) mg/dl Ferritin (8-252) ng/ml Total Bilirubin (0.2-1.0) mg/dL Direct Bilirubin (0.0-0.2) mg/dl Indirect Bilirubin AST (15-37) U/L ALT (14-59) U/L Alkaline Phosphatase (46-116) U/L Lactate Dehydrogenase (81-234) U/L C-Reactive Protein (<1.0) mg/dL Total Protein (6.4-8.2) g/dl Albumin (3.4-5.0) g/dl Globulin gm/dL Albumin/Globulin Ratio (1-2) Urine Color Dark yellow (Yellow) Urine Appearance Slt cloudy H (Clear) Urine pH 6.0 (5.0-8.0) Ur Specific [place] 1.025 (1.005-1.030) Urine Protein 1+ H (Negative) Urine Glucose (UA) Negative (Negative) Urine Ketones Negative (Negative) Urine Occult Blood Negative (Negative) Urine Nitrite Negative (Negative) Urine Bilirubin Negative (Negative) Urine Urobilinogen 1.0 (0.2-1.0) Ur Leukocyte Esterase 1+ H (Negative) Urine RBC 5-10 H (0-5) /hpf Urine WBC 10-20 H (0-5) /hpf Ur Epithelial Cells 5-10 H (0-5) /hpf Urine Bacteria Moderate H (FEW) /hpf Urine Mucus Few (FEW) /hpf SARS-CoV-2 RNA (CURTIS) (NEGATIVE) Result Diagrams: 08/01/20 13:13 08/01/20 13:13 Imaging Impressions Last 24 hrs: Chest x-ray shows diffuse areas of increased density on both sides of the chest. Worse on the right. Sepsis Event Note - Evaluation Sepsis Screening Result: No Definite Risk - Focused Exam Vital Signs: Vital Signs Temp Temp Pulse Pulse Resp BP BP 08/01/20 17:57 99.3 F 80 20 112/48 L 08/01/20 17:45 81 100/66 08/01/20 17:30 80 14 118/64 08/01/20 17:15 83 14 121/62 08/01/20 17:00 81 16 108/63 08/01/20 16:45 79 12 109/68 08/01/20 16:00 80 112/68 08/01/20 15:21 08/01/20 15:00 84 113/65 08/01/20 14:00 85 108/60 08/01/20 13:00 80 16 118/67 08/01/20 12:58 99.3 F 80 16 118/67 Pulse Ox Pulse Ox 08/01/20 17:57 100 08/01/20 17:45 99 08/01/20 17:30 99 08/01/20 17:15 98 08/01/20 17:00 95 08/01/20 16:45 99 08/01/20 16:00 98 08/01/20 15:21 100 08/01/20 15:00 97 08/01/20 14:00 08/01/20 13:00 92 L 08/01/20 12:58 100 - Problem List & Annotations (1) COVID-19 SNOMED Code(s): 661337523 Code(s): U07.1 - COVID-19 Status: Acute Current Visit: Yes (2) Hypoxia SNOMED Code(s): 283162398 Code(s): R09.02 - HYPOXEMIA Status: Acute Current Visit: Yes (3) Pneumonia due to COVID-19 virus SNOMED Code(s): 584269225569179223 Code(s): U07.1 - COVID-19; J12.82 - PNEUMONIA DUE TO CORONAVIRUS DISEASE 2019 Status: Acute Current Visit: Yes - Problem List Review Problem List Initiated/Reviewed/Updated: Yes - My Orders Last 24 Hours: My Active Orders 08/01/20 Dinner Regular Diet [DIET] 08/01/20 17:25 Oxygen Therapy [RC] PRN Up ad Flores [RC] ASDIRECTED VTE/DVT Education [RC] PER UNIT ROUTINE Vital Signs [RC] Q4H Respiratory Care Assess and Treatment [CONS] Routine Acetaminophen [TylenoL] 650 mg PO Q4H PRN Ibuprofen [Motrin] 600 mg PO Q6H PRN Ondansetron [Zofran] 4 mg IV Q4H PRN Resuscitation Status Routine 08/01/20 17:30 Positioning, Patient [RC] ASDIRECTED RT Incentive Spirometry [RC] ASDIRECTED Isolation [COMM] Stat 08/01/20 17:35 RT Chest Physiotherapy [RC] ASDIRECTED Benzonatate [Tessalon Perles] 100 mg PO QID PRN Codeine/guaiFENesin [Robitussin AC] 5 ml PO Q4H PRN 08/01/20 17:36 Albuterol [Proventil HFA] See Dose Instructions INH Q2H PRN 08/01/20 17:37 RT Post Treatment Assessment [RC] Click to Edit RT Pre-Treatment Assessment [RC] Click to Edit 08/01/20 17:45 Aspirin [Ecotrin] 325 mg PO DAILY Azithromycin [Zithromax] 500 mg Sodium Chloride 0.9% [Normal Saline (AdvBag)] 250 ml IV Q24H Cholecalciferol (Vitamin D3) [Vitamin D3] 5,000 unit PO DAILY Zinc Sulfate [Zincate] 220 mg PO DAILY cefTRIAXone [Rocephin] 2 gm Sodium Chloride 0.9% [Normal Saline] 100 ml IV Q24H 08/01/20 18:43 Patient Status [ADT] Routine 08/01/20 21:00 Famotidine [Pepcid] 20 mg PO BID Melatonin 9 mg PO BEDTIME 08/02/20 05:11 C-REACTIVE PROTEIN [CHEM] AM CBC WITH AUTO DIFF [HEME] AM CMP [COMPREHENSIVE METABOLIC PN,CMP] [CHEM] AM DD [D-DIMER QUANTITATIVE] [COAG] AM MAGNESIUM [CHEM] AM PHOSPHORUS [CHEM] AM VITAMIN D,25-HYDROXY [CHEM] AM 08/02/20 09:00 Enoxaparin [Lovenox] 40 mg SUBCUT DAILY Remdesivir 100 mg Sodium Chloride 0.9% [Normal Saline] 100 ml IV DAILY dexAMETHasone 6 mg PO DAILY 08/03/20 05:11 C-REACTIVE PROTEIN [CHEM] AM CBC WITH AUTO DIFF [HEME] AM CMP [COMPREHENSIVE METABOLIC PN,CMP] [CHEM] AM DD [D-DIMER QUANTITATIVE] [COAG] AM MAGNESIUM [CHEM] AM PHOSPHORUS [CHEM] AM 08/04/20 05:11 C-REACTIVE PROTEIN [CHEM] AM CBC WITH AUTO DIFF [HEME] AM CMP [COMPREHENSIVE METABOLIC PN,CMP] [CHEM] AM DD [D-DIMER QUANTITATIVE] [COAG] AM MAGNESIUM [CHEM] AM PHOSPHORUS [CHEM] AM 08/05/20 05:11 C-REACTIVE PROTEIN [CHEM] AM CBC WITH AUTO DIFF [HEME] AM CMP [COMPREHENSIVE METABOLIC PN,CMP] [CHEM] AM DD [D-DIMER QUANTITATIVE] [COAG] AM MAGNESIUM [CHEM] AM PHOSPHORUS [CHEM] AM 08/06/20 05:11 C-REACTIVE PROTEIN [CHEM] AM CBC WITH AUTO DIFF [HEME] AM CMP [COMPREHENSIVE METABOLIC PN,CMP] [CHEM] AM DD [D-DIMER QUANTITATIVE] [COAG] AM MAGNESIUM [CHEM] AM PHOSPHORUS [CHEM] AM 08/07/20 05:11 C-REACTIVE PROTEIN [CHEM] AM CBC WITH AUTO DIFF [HEME] AM CMP [COMPREHENSIVE METABOLIC PN,CMP] [CHEM] AM DD [D-DIMER QUANTITATIVE] [COAG] AM MAGNESIUM [CHEM] AM PHOSPHORUS [CHEM] AM - Plan Plan:: Assessment 55-year-old female that was exposed to someone with Covid approximately 2 weeks ago has been symptomatic for about that long. She was Covid positive in the ER. Oxygen saturations were in the low 90s at rest and dropped into the 80s with activity. Chest x-ray is consistent with Covid pneumonia. COVID-19 Viral pneumonia * Symptomatic for approximately 2 weeks * Day BC 6, creatinine 1.1, glucose 136, C-reactive protein 15.2, alkaline phosphatase 119, LDH 258, albumin 2.8 * Given remdesivir and dexamethasone first doses in the ER Plan * Admit to medical floor on strict isolation * Remdesivir, dexamethasone, Rocephin, azithromycin * Aspirin, melatonin, zinc, Pepcid, and vitamin D * FiO2 to keep SPO2 greater than 88% * Follow liver enzymes daily Mild hyponatremia * Sodium 13 * Likely secondary to poor intake * Given a liter of NS bolus in the emergency department Plan * Follow daily Acute renal injury * Creatinine 1.1 with estimated GFR 51 * Likely secondary to hypovolemia Plan * Cautiously rehydrate * Follow daily Possible UTI * 10- 20 WBCs but 5-10 epithelial cells. Consider contamination * Patient on Rocephin for Covid Plan * Urine culture * Continue Rocephin Chronic: Hard of hearing, familial tremors, anxiety and depression. Plan continue home meds VTE prophylaxis with Lovenox CODE STATUS full code
[2020-08-01] MEDS: Azithromycin 500 MG in Sodium Chloride 0.9% 250 ML IV SCH (19:09)
[2020-08-01] MEDS: Melatonin 3 MG Tab PO SCH (20:31)
[2020-08-01] MEDS: Famotidine 20 MG Tab PO SCH (20:31)
[2020-08-02 06:27] LABS: VITAMIN D,25-HYDROXY 92.2 ng/ml (30.0-100.0)
[2020-08-02] MEDS: Zinc Sulfate 220 MG Cap PO SCH (08:24)
[2020-08-02] MEDS: Dexamethasone 4 MG Tab PO SCH (08:24)
[2020-08-02] MEDS: Enoxaparin 40 MG/0.4 ML Syringe SUBCUT SCH (08:25)
[2020-08-02] MEDS: Cholecalciferol (Vitamin D3) 5,000 UNIT Cap PO SCH (08:25)
[2020-08-02] MEDS: Famotidine 20 MG Tab PO SCH ×2 (08:25→21:10)
[2020-08-02] MEDS: Aspirin 325 MG Tab.EC PO SCH (08:25)
--- NOTE | 2020-08-02 12:31 | PCM.PN ---
- General Info Date of Service: 08/02/20 Admission Dx/Problem (Free Text): COVID-19 positive test (U07.1, COVID-19) with Acute Pneumonia (J12.89, Other viral pneumonia) Subjective Update: Mel states she is feeling a little better today. She is coughing less. No fevers overnight. Functional Status: Reports: Pain Controlled - Review of Systems General: Reports: No Symptoms HEENT: Reports: No Symptoms Pulmonary: Reports: Cough Cardiovascular: Reports: No Symptoms Gastrointestinal: Reports: No Symptoms Musculoskeletal: Reports: No Symptoms - Patient Data Vitals - Most Recent: Last Vital Signs Temp 97.7 F 08/02/20 11:29 Pulse 62 08/02/20 11:29 Resp 16 08/02/20 11:29 BP 113/53 L 08/02/20 11:29 Pulse Ox 92 L 08/02/20 11:29 Weight - Most Recent: 183 lb 1.6 oz I&O - Last 24 Hours: Intake & Output 08/01/20 08/02/20 08/02/20 22:59 06:59 14:59 Intake Total 1000 500 Output Total 2100 Balance -1100 500 Lab Results Last 24 Hours: Laboratory Results - last 24 hr 08/01/20 08/01/20 08/01/20 Range/Units 13:13 13:13 13:13 WBC 5.99 (3.98-10.04) K/mm3 RBC 4.41 (3.98-5.22) M/mm3 Hgb 12.0 D (11.2-15.7) gm/dl Hct 38.2 (34.1-44.9) % MCV 86.6 D (79.4-94.8) fl MCH 27.2 (25.6-32.2) pg MCHC 31.4 L (32.2-35.5) g/dl RDW Std Deviation 43.4 (36.4-46.3) fL Plt Count 246 (182-369) K/mm3 MPV 9.8 (9.4-12.3) fl Neut % (Auto) 53.7 (34.0-71.1) % Lymph % (Auto) 31.9 (19.3-51.7) % [place] % (Auto) 13.0 H (4.7-12.5) % Eos % (Auto) 0.8 (0.7-5.8) Baso % (Auto) 0.3 (0.1-1.2) % Neut # (Auto) 3.21 (1.56-6.13) K/mm3 Lymph # (Auto) 1.91 (1.18-3.74) K/mm3 [place] # (Auto) 0.78 H (0.24-0.36) K/mm3 Eos # (Auto) 0.05 (0.04-0.36) K/mm3 Baso # (Auto) 0.02 (0.01-0.08) K/mm3 Manual Slide Review PT 10.9 (9.7-12.0) SECONDS INR 1.02 APTT 28.0 (21.7-31.4) SECONDS D-Dimer, Quantitative 0.46 (0.19-0.50) mg/L Sodium 134 L (136-145) mEq/L Potassium 4.6 (3.5-5.1) mEq/L Chloride 96 L (98-107) mEq/L Carbon Dioxide 29 (21-32) mEq/L Anion Gap 13.6 (5-15) BUN 18 (7-18) mg/dL Creatinine 1.1 H (0.55-1.02) mg/dL Est Cr Clr Drug Dosing 52.82 mL/min Estimated GFR (MDRD) 51 (>60) mL/min BUN/Creatinine Ratio 16.4 (14-18) Glucose 136 H (74-106) mg/dL Lactic Acid (0.4-2.0) mmol/L Calcium 8.6 (8.5-10.1) mg/dL Phosphorus (2.6-4.7) mg/dL Magnesium 2.0 (1.8-2.4) mg/dl Ferritin (8-252) ng/ml Total Bilirubin 0.7 (0.2-1.0) mg/dL Direct Bilirubin (0.0-0.2) mg/dl Indirect Bilirubin AST 36 (15-37) U/L ALT 40 (14-59) U/L Alkaline Phosphatase 119 H (46-116) U/L Lactate Dehydrogenase 258 H (81-234) U/L C-Reactive Protein 15.2 H* (<1.0) mg/dL Total Protein 7.3 (6.4-8.2) g/dl Albumin 2.8 L (3.4-5.0) g/dl Globulin 4.5 gm/dL Albumin/Globulin Ratio 0.6 L (1-2) Vitamin D 25-Hydroxy (30.0-100.0) ng/ml Urine Color (Yellow) Urine Appearance (Clear) Urine pH (5.0-8.0) Ur Specific [place] (1.005-1.030) Urine Protein (Negative) Urine Glucose (UA) (Negative) Urine Ketones (Negative) Urine Occult Blood (Negative) Urine Nitrite (Negative) Urine Bilirubin (Negative) Urine Urobilinogen (0.2-1.0) Ur Leukocyte Esterase (Negative) Urine RBC (0-5) /hpf Urine WBC (0-5) /hpf Ur Epithelial Cells (0-5) /hpf Urine Bacteria (FEW) /hpf Urine Mucus (FEW) /hpf SARS-CoV-2 RNA (CURTIS) (NEGATIVE) 08/01/20 08/01/20 08/01/20 Range/Units 13:13 13:13 13:46 WBC (3.98-10.04) K/mm3 RBC (3.98-5.22) M/mm3 Hgb (11.2-15.7) gm/dl Hct (34.1-44.9) % MCV (79.4-94.8) fl MCH (25.6-32.2) pg MCHC (32.2-35.5) g/dl RDW Std Deviation (36.4-46.3) fL Plt Count (182-369) K/mm3 MPV (9.4-12.3) fl Neut % (Auto) (34.0-71.1) % Lymph % (Auto) (19.3-51.7) % [place] % (Auto) (4.7-12.5) % Eos % (Auto) (0.7-5.8) Baso % (Auto) (0.1-1.2) % Neut # (Auto) (1.56-6.13) K/mm3 Lymph # (Auto) (1.18-3.74) K/mm3 [place] # (Auto) (0.24-0.36) K/mm3 Eos # (Auto) (0.04-0.36) K/mm3 Baso # (Auto) (0.01-0.08) K/mm3 Manual Slide Review PT (9.7-12.0) SECONDS INR APTT (21.7-31.4) SECONDS D-Dimer, Quantitative (0.19-0.50) mg/L Sodium (136-145) mEq/L Potassium (3.5-5.1) mEq/L Chloride (98-107) mEq/L Carbon Dioxide (21-32) mEq/L Anion Gap (5-15) BUN (7-18) mg/dL Creatinine (0.55-1.02) mg/dL Est Cr Clr Drug Dosing mL/min Estimated GFR (MDRD) (>60) mL/min BUN/Creatinine Ratio (14-18) Glucose (74-106) mg/dL Lactic Acid (0.4-2.0) mmol/L Calcium (8.5-10.1) mg/dL Phosphorus (2.6-4.7) mg/dL Magnesium (1.8-2.4) mg/dl Ferritin 133 (8-252) ng/ml Total Bilirubin 0.7 (0.2-1.0) mg/dL Direct Bilirubin 0.10 (0.0-0.2) mg/dl Indirect Bilirubin 0.60 AST 40 H (15-37) U/L ALT 41 (14-59) U/L Alkaline Phosphatase 120 H (46-116) U/L Lactate Dehydrogenase (81-234) U/L C-Reactive Protein (<1.0) mg/dL Total Protein 7.4 (6.4-8.2) g/dl Albumin 2.8 L (3.4-5.0) g/dl Globulin 4.6 gm/dL Albumin/Globulin Ratio 0.6 L (1-2) Vitamin D 25-Hydroxy (30.0-100.0) ng/ml Urine Color (Yellow) Urine Appearance (Clear) Urine pH (5.0-8.0) Ur Specific [place] (1.005-1.030) Urine Protein (Negative) Urine Glucose (UA) (Negative) Urine Ketones (Negative) Urine Occult Blood (Negative) Urine Nitrite (Negative) Urine Bilirubin (Negative) Urine Urobilinogen (0.2-1.0) Ur Leukocyte Esterase (Negative) Urine RBC (0-5) /hpf Urine WBC (0-5) /hpf Ur Epithelial Cells (0-5) /hpf Urine Bacteria (FEW) /hpf Urine Mucus (FEW) /hpf SARS-CoV-2 RNA (CURTIS) Positive H (NEGATIVE) 08/01/20 08/01/20 08/02/20 Range/Units 13:59 15:10 05:00 WBC 3.80 L (3.98-10.04) K/mm3 RBC 4.21 (3.98-5.22) M/mm3 Hgb 11.6 (11.2-15.7) gm/dl Hct 36.9 (34.1-44.9) % MCV 87.6 (79.4-94.8) fl MCH 27.6 (25.6-32.2) pg MCHC 31.4 L (32.2-35.5) g/dl RDW Std Deviation 43.1 (36.4-46.3) fL Plt Count 208 (182-369) K/mm3 MPV 10.2 (9.4-12.3) fl Neut % (Auto) 47.9 (34.0-71.1) % Lymph % (Auto) 41.6 (19.3-51.7) % [place] % (Auto) 9.7 (4.7-12.5) % Eos % (Auto) 0 L (0.7-5.8) Baso % (Auto) 0.5 (0.1-1.2) % Neut # (Auto) 1.82 (1.56-6.13) K/mm3 Lymph # (Auto) 1.58 (1.18-3.74) K/mm3 [place] # (Auto) 0.37 H (0.24-0.36) K/mm3 Eos # (Auto) 0.00 L (0.04-0.36) K/mm3 Baso # (Auto) 0.02 (0.01-0.08) K/mm3 Manual Slide Review Normal smear PT (9.7-12.0) SECONDS INR APTT (21.7-31.4) SECONDS D-Dimer, Quantitative (0.19-0.50) mg/L Sodium (136-145) mEq/L Potassium (3.5-5.1) mEq/L Chloride (98-107) mEq/L Carbon Dioxide (21-32) mEq/L Anion Gap (5-15) BUN (7-18) mg/dL Creatinine (0.55-1.02) mg/dL Est Cr Clr Drug Dosing mL/min Estimated GFR (MDRD) (>60) mL/min BUN/Creatinine Ratio (14-18) Glucose (74-106) mg/dL Lactic Acid 1.6 (0.4-2.0) mmol/L Calcium (8.5-10.1) mg/dL Phosphorus (2.6-4.7) mg/dL Magnesium (1.8-2.4) mg/dl Ferritin (8-252) ng/ml Total Bilirubin (0.2-1.0) mg/dL Direct Bilirubin (0.0-0.2) mg/dl Indirect Bilirubin AST (15-37) U/L ALT (14-59) U/L Alkaline Phosphatase (46-116) U/L Lactate Dehydrogenase (81-234) U/L C-Reactive Protein (<1.0) mg/dL Total Protein (6.4-8.2) g/dl Albumin (3.4-5.0) g/dl Globulin gm/dL Albumin/Globulin Ratio (1-2) Vitamin D 25-Hydroxy (30.0-100.0) ng/ml Urine Color Dark yellow (Yellow) Urine Appearance Slt cloudy H (Clear) Urine pH 6.0 (5.0-8.0) Ur Specific [place] 1.025 (1.005-1.030) Urine Protein 1+ H (Negative) Urine Glucose (UA) Negative (Negative) Urine Ketones Negative (Negative) Urine Occult Blood Negative (Negative) Urine Nitrite Negative (Negative) Urine Bilirubin Negative (Negative) Urine Urobilinogen 1.0 (0.2-1.0) Ur Leukocyte Esterase 1+ H (Negative) Urine RBC 5-10 H (0-5) /hpf Urine WBC 10-20 H (0-5) /hpf Ur Epithelial Cells 5-10 H (0-5) /hpf Urine Bacteria Moderate H (FEW) /hpf Urine Mucus Few (FEW) /hpf SARS-CoV-2 RNA (CURTIS) (NEGATIVE) 08/02/20 08/02/20 Range/Units 05:00 05:00 WBC (3.98-10.04) K/mm3 RBC (3.98-5.22) M/mm3 Hgb (11.2-15.7) gm/dl Hct (34.1-44.9) % MCV (79.4-94.8) fl MCH (25.6-32.2) pg MCHC (32.2-35.5) g/dl RDW Std Deviation (36.4-46.3) fL Plt Count (182-369) K/mm3 MPV (9.4-12.3) fl Neut % (Auto) (34.0-71.1) % Lymph % (Auto) (19.3-51.7) % [place] % (Auto) (4.7-12.5) % Eos % (Auto) (0.7-5.8) Baso % (Auto) (0.1-1.2) % Neut # (Auto) (1.56-6.13) K/mm3 Lymph # (Auto) (1.18-3.74) K/mm3 [place] # (Auto) (0.24-0.36) K/mm3 Eos # (Auto) (0.04-0.36) K/mm3 Baso # (Auto) (0.01-0.08) K/mm3 Manual Slide Review PT (9.7-12.0) SECONDS INR APTT (21.7-31.4) SECONDS D-Dimer, Quantitative 2.43 H (0.19-0.50) mg/L Sodium 141 (136-145) mEq/L Potassium 4.4 (3.5-5.1) mEq/L Chloride 104 (98-107) mEq/L Carbon Dioxide 29 (21-32) mEq/L Anion Gap 12.4 (5-15) BUN 17 (7-18) mg/dL Creatinine 0.8 (0.55-1.02) mg/dL Est Cr Clr Drug Dosing 72.63 mL/min Estimated GFR (MDRD) > 60 (>60) mL/min BUN/Creatinine Ratio 21.3 H (14-18) Glucose 135 H (74-106) mg/dL Lactic Acid (0.4-2.0) mmol/L Calcium 8.7 (8.5-10.1) mg/dL Phosphorus 4.4 (2.6-4.7) mg/dL Magnesium 2.3 (1.8-2.4) mg/dl Ferritin (8-252) ng/ml Total Bilirubin 0.4 (0.2-1.0) mg/dL Direct Bilirubin (0.0-0.2) mg/dl Indirect Bilirubin AST 31 (15-37) U/L ALT 40 (14-59) U/L Alkaline Phosphatase 111 (46-116) U/L Lactate Dehydrogenase (81-234) U/L C-Reactive Protein 16.9 H* (<1.0) mg/dL Total Protein 7.3 (6.4-8.2) g/dl Albumin 2.7 L (3.4-5.0) g/dl Globulin 4.6 gm/dL Albumin/Globulin Ratio 0.6 L (1-2) Vitamin D 25-Hydroxy 92.2 (30.0-100.0) ng/ml Urine Color (Yellow) Urine Appearance (Clear) Urine pH (5.0-8.0) Ur Specific [place] (1.005-1.030) Urine Protein (Negative) Urine Glucose (UA) (Negative) Urine Ketones (Negative) Urine Occult Blood (Negative) Urine Nitrite (Negative) Urine Bilirubin (Negative) Urine Urobilinogen (0.2-1.0) Ur Leukocyte Esterase (Negative) Urine RBC (0-5) /hpf Urine WBC (0-5) /hpf Ur Epithelial Cells (0-5) /hpf Urine Bacteria (FEW) /hpf Urine Mucus (FEW) /hpf SARS-CoV-2 RNA (CURTIS) (NEGATIVE) Med Orders - Current: Current Medications Acetaminophen (Acetaminophen 325 Mg Tab) 650 mg PO Q4H PRN PRN Reason: Pain (Mild 1-3)/fever Albuterol (Albuterol 6.7 Gm Inhaler) 0 gm INH Q2H PRN PRN Reason: Shortness of Breath Aspirin (Aspirin 325 Mg Tab.Ec) 325 mg PO DAILY [facility] Last Admin: 08/02/20 08:25 Dose: 325 mg Documented by: Benzonatate (Benzonatate 100 Mg Cap) 100 mg PO QID PRN PRN Reason: Cough Cholecalciferol (Cholecalciferol (Vitamin D3) 5,000 Unit Cap) 5,000 unit PO DAILY [facility] Last Admin: 08/02/20 08:25 Dose: 5,000 unit Documented by: Dexamethasone (Dexamethasone 4 Mg Tab) 6 mg PO DAILY [facility] Stop: 08/10/20 09:01 Last Admin: 08/02/20 08:24 Dose: 6 mg Documented by: Duloxetine HCl (Duloxetine 30 Mg Cap) 60 mg PO BEDTIME [facility] Enoxaparin Sodium (Enoxaparin 40 Mg/0.4 Ml Syringe) 40 mg SUBCUT DAILY [facility] Last Admin: 08/02/20 08:25 Dose: 40 mg Documented by: Famotidine (Famotidine 20 Mg Tab) 20 mg PO BID [facility] Last Admin: 08/02/20 08:25 Dose: 20 mg Documented by: Guaifenesin/Codeine Phosphate (Codeine/Guaifenesin 10-100 Mg/5 Ml Syrup 5 Ml Cup) 5 ml PO Q4H PRN PRN Reason: Cough Remdesivir 100 mg/ Sodium (Chloride) 100 mls @ 100 mls/hr IV Q24H [facility] Stop: 08/05/20 16:59 Ceftriaxone Sodium 2 gm/ (Sodium Chloride) 100 mls @ 200 mls/hr IV Q24H [facility] Stop: 08/05/20 18:14 Last Admin: 08/01/20 18:29 Dose: 200 mls/hr Documented by: Azithromycin 500 mg/ Sodium (Chloride) 250 mls @ 250 mls/hr IV Q24H [facility] Stop: 08/03/20 18:44 Last Admin: 08/01/20 19:09 Dose: 250 mls/hr Documented by: Ibuprofen (Ibuprofen 600 Mg Tab) 600 mg PO Q6H PRN PRN Reason: Pain (moderate 4-6) Melatonin (Melatonin 3 Mg Tab) 9 mg PO BEDTIME [facility] Last Admin: 08/01/20 20:31 Dose: Not Given Documented by: Ondansetron HCl (Ondansetron 4 Mg/2 Ml Sdv) 4 mg IV Q4H PRN PRN Reason: Nausea/Vomiting Propranolol HCl (Propranolol 60 Mg Cap.Er) 120 mg PO BEDTIME [facility] Sodium Chloride (Sodium Chloride 0.9% 10 Ml Syringe) 10 ml FLUSH ASDIRECTED PRN PRN Reason: Keep Vein Open Last Admin: 08/01/20 13:43 Dose: 10 ml Documented by: Zinc Sulfate (Zinc Sulfate 220 Mg Cap) 220 mg PO DAILY [facility] Last Admin: 08/02/20 08:24 Dose: 220 mg Documented by: Discontinued Medications Dexamethasone (Dexamethasone 4 Mg/Ml Sdv) 6 mg IVPUSH ONETIME ONE Stop: 08/01/20 16:11 Last Admin: 08/01/20 16:46 Dose: 6 mg Documented by: Sodium Chloride (Normal Saline) 1,000 mls @ 1,000 mls/hr IV .BOLUS HEMA Last Admin: 08/01/20 13:45 Dose: 1,000 mls/hr Documented by: Remdesivir 200 mg/ Sodium (Chloride) 250 mls @ 250 mls/hr IV ONETIME ONE Stop: 08/01/20 17:44 Last Admin: 08/01/20 16:49 Dose: 250 mls/hr Documented by: - Exam Quality Assessment: Supplemental Oxygen General: Alert, Oriented HEENT: Pupils Equal, Mucous Membr. Moist/[place] Neck: Supple Lungs: Normal Respiratory Effort (Recurrent coughing), Crackles (Bibasilar crackles) Cardiovascular: Regular Rate, Regular Rhythm Extremities: Normal Inspection, Normal Range of Motion, Non-Tender, No Pedal Edema, Normal Capillary Refill Skin: Warm, Dry, Intact Psy/Mental Status: Alert, Normal Affect, Normal Mood - Patient Data Lab Results Last 24 hrs: Laboratory Results - last 24 hr 08/01/20 08/01/20 08/01/20 Range/Units 13:13 13:13 13:13 WBC 5.99 (3.98-10.04) K/mm3 RBC 4.41 (3.98-5.22) M/mm3 Hgb 12.0 D (11.2-15.7) gm/dl Hct 38.2 (34.1-44.9) % MCV 86.6 D (79.4-94.8) fl MCH 27.2 (25.6-32.2) pg MCHC 31.4 L (32.2-35.5) g/dl RDW Std Deviation 43.4 (36.4-46.3) fL Plt Count 246 (182-369) K/mm3 MPV 9.8 (9.4-12.3) fl Neut % (Auto) 53.7 (34.0-71.1) % Lymph % (Auto) 31.9 (19.3-51.7) % [place] % (Auto) 13.0 H (4.7-12.5) % Eos % (Auto) 0.8 (0.7-5.8) Baso % (Auto) 0.3 (0.1-1.2) % Neut # (Auto) 3.21 (1.56-6.13) K/mm3 Lymph # (Auto) 1.91 (1.18-3.74) K/mm3 [place] # (Auto) 0.78 H (0.24-0.36) K/mm3 Eos # (Auto) 0.05 (0.04-0.36) K/mm3 Baso # (Auto) 0.02 (0.01-0.08) K/mm3 Manual Slide Review PT 10.9 (9.7-12.0) SECONDS INR 1.02 APTT 28.0 (21.7-31.4) SECONDS D-Dimer, Quantitative 0.46 (0.19-0.50) mg/L Sodium 134 L (136-145) mEq/L Potassium 4.6 (3.5-5.1) mEq/L Chloride 96 L (98-107) mEq/L Carbon Dioxide 29 (21-32) mEq/L Anion Gap 13.6 (5-15) BUN 18 (7-18) mg/dL Creatinine 1.1 H (0.55-1.02) mg/dL Est Cr Clr Drug Dosing 52.82 mL/min Estimated GFR (MDRD) 51 (>60) mL/min BUN/Creatinine Ratio 16.4 (14-18) Glucose 136 H (74-106) mg/dL Lactic Acid (0.4-2.0) mmol/L Calcium 8.6 (8.5-10.1) mg/dL Phosphorus (2.6-4.7) mg/dL Magnesium 2.0 (1.8-2.4) mg/dl Ferritin (8-252) ng/ml Total Bilirubin 0.7 (0.2-1.0) mg/dL Direct Bilirubin (0.0-0.2) mg/dl Indirect Bilirubin AST 36 (15-37) U/L ALT 40 (14-59) U/L Alkaline Phosphatase 119 H (46-116) U/L Lactate Dehydrogenase 258 H (81-234) U/L C-Reactive Protein 15.2 H* (<1.0) mg/dL Total Protein 7.3 (6.4-8.2) g/dl Albumin 2.8 L (3.4-5.0) g/dl Globulin 4.5 gm/dL Albumin/Globulin Ratio 0.6 L (1-2) Vitamin D 25-Hydroxy (30.0-100.0) ng/ml Urine Color (Yellow) Urine Appearance (Clear) Urine pH (5.0-8.0) Ur Specific [place] (1.005-1.030) Urine Protein (Negative) Urine Glucose (UA) (Negative) Urine Ketones (Negative) Urine Occult Blood (Negative) Urine Nitrite (Negative) Urine Bilirubin (Negative) Urine Urobilinogen (0.2-1.0) Ur Leukocyte Esterase (Negative) Urine RBC (0-5) /hpf Urine WBC (0-5) /hpf Ur Epithelial Cells (0-5) /hpf Urine Bacteria (FEW) /hpf Urine Mucus (FEW) /hpf SARS-CoV-2 RNA (CURTIS) (NEGATIVE) 08/01/20 08/01/20 08/01/20 Range/Units 13:13 13:13 13:46 WBC (3.98-10.04) K/mm3 RBC (3.98-5.22) M/mm3 Hgb (11.2-15.7) gm/dl Hct (34.1-44.9) % MCV (79.4-94.8) fl MCH (25.6-32.2) pg MCHC (32.2-35.5) g/dl RDW Std Deviation (36.4-46.3) fL Plt Count (182-369) K/mm3 MPV (9.4-12.3) fl Neut % (Auto) (34.0-71.1) % Lymph % (Auto) (19.3-51.7) % [place] % (Auto) (4.7-12.5) % Eos % (Auto) (0.7-5.8) Baso % (Auto) (0.1-1.2) % Neut # (Auto) (1.56-6.13) K/mm3 Lymph # (Auto) (1.18-3.74) K/mm3 [place] # (Auto) (0.24-0.36) K/mm3 Eos # (Auto) (0.04-0.36) K/mm3 Baso # (Auto) (0.01-0.08) K/mm3 Manual Slide Review PT (9.7-12.0) SECONDS INR APTT (21.7-31.4) SECONDS D-Dimer, Quantitative (0.19-0.50) mg/L Sodium (136-145) mEq/L Potassium (3.5-5.1) mEq/L Chloride (98-107) mEq/L Carbon Dioxide (21-32) mEq/L Anion Gap (5-15) BUN (7-18) mg/dL Creatinine (0.55-1.02) mg/dL Est Cr Clr Drug Dosing mL/min Estimated GFR (MDRD) (>60) mL/min BUN/Creatinine Ratio (14-18) Glucose (74-106) mg/dL Lactic Acid (0.4-2.0) mmol/L Calcium (8.5-10.1) mg/dL Phosphorus (2.6-4.7) mg/dL Magnesium (1.8-2.4) mg/dl Ferritin 133 (8-252) ng/ml Total Bilirubin 0.7 (0.2-1.0) mg/dL Direct Bilirubin 0.10 (0.0-0.2) mg/dl Indirect Bilirubin 0.60 AST 40 H (15-37) U/L ALT 41 (14-59) U/L Alkaline Phosphatase 120 H (46-116) U/L Lactate Dehydrogenase (81-234) U/L C-Reactive Protein (<1.0) mg/dL Total Protein 7.4 (6.4-8.2) g/dl Albumin 2.8 L (3.4-5.0) g/dl Globulin 4.6 gm/dL Albumin/Globulin Ratio 0.6 L (1-2) Vitamin D 25-Hydroxy (30.0-100.0) ng/ml Urine Color (Yellow) Urine Appearance (Clear) Urine pH (5.0-8.0) Ur Specific [place] (1.005-1.030) Urine Protein (Negative) Urine Glucose (UA) (Negative) Urine Ketones (Negative) Urine Occult Blood (Negative) Urine Nitrite (Negative) Urine Bilirubin (Negative) Urine Urobilinogen (0.2-1.0) Ur Leukocyte Esterase (Negative) Urine RBC (0-5) /hpf Urine WBC (0-5) /hpf Ur Epithelial Cells (0-5) /hpf Urine Bacteria (FEW) /hpf Urine Mucus (FEW) /hpf SARS-CoV-2 RNA (CURTIS) Positive H (NEGATIVE) 08/01/20 08/01/20 08/02/20 Range/Units 13:59 15:10 05:00 WBC 3.80 L (3.98-10.04) K/mm3 RBC 4.21 (3.98-5.22) M/mm3 Hgb 11.6 (11.2-15.7) gm/dl Hct 36.9 (34.1-44.9) % MCV 87.6 (79.4-94.8) fl MCH 27.6 (25.6-32.2) pg MCHC 31.4 L (32.2-35.5) g/dl RDW Std Deviation 43.1 (36.4-46.3) fL Plt Count 208 (182-369) K/mm3 MPV 10.2 (9.4-12.3) fl Neut % (Auto) 47.9 (34.0-71.1) % Lymph % (Auto) 41.6 (19.3-51.7) % [place] % (Auto) 9.7 (4.7-12.5) % Eos % (Auto) 0 L (0.7-5.8) Baso % (Auto) 0.5 (0.1-1.2) % Neut # (Auto) 1.82 (1.56-6.13) K/mm3 Lymph # (Auto) 1.58 (1.18-3.74) K/mm3 [place] # (Auto) 0.37 H (0.24-0.36) K/mm3 Eos # (Auto) 0.00 L (0.04-0.36) K/mm3 Baso # (Auto) 0.02 (0.01-0.08) K/mm3 Manual Slide Review Normal smear PT (9.7-12.0) SECONDS INR APTT (21.7-31.4) SECONDS D-Dimer, Quantitative (0.19-0.50) mg/L Sodium (136-145) mEq/L Potassium (3.5-5.1) mEq/L Chloride (98-107) mEq/L Carbon Dioxide (21-32) mEq/L Anion Gap (5-15) BUN (7-18) mg/dL Creatinine (0.55-1.02) mg/dL Est Cr Clr Drug Dosing mL/min Estimated GFR (MDRD) (>60) mL/min BUN/Creatinine Ratio (14-18) Glucose (74-106) mg/dL Lactic Acid 1.6 (0.4-2.0) mmol/L Calcium (8.5-10.1) mg/dL Phosphorus (2.6-4.7) mg/dL Magnesium (1.8-2.4) mg/dl Ferritin (8-252) ng/ml Total Bilirubin (0.2-1.0) mg/dL Direct Bilirubin (0.0-0.2) mg/dl Indirect Bilirubin AST (15-37) U/L ALT (14-59) U/L Alkaline Phosphatase (46-116) U/L Lactate Dehydrogenase (81-234) U/L C-Reactive Protein (<1.0) mg/dL Total Protein (6.4-8.2) g/dl Albumin (3.4-5.0) g/dl Globulin gm/dL Albumin/Globulin Ratio (1-2) Vitamin D 25-Hydroxy (30.0-100.0) ng/ml Urine Color Dark yellow (Yellow) Urine Appearance Slt cloudy H (Clear) Urine pH 6.0 (5.0-8.0) Ur Specific Rice 1.025 (1.005-1.030) Urine Protein 1+ H (Negative) Urine Glucose (UA) Negative (Negative) Urine Ketones Negative (Negative) Urine Occult Blood Negative (Negative) Urine Nitrite Negative (Negative) Urine Bilirubin Negative (Negative) Urine Urobilinogen 1.0 (0.2-1.0) Ur Leukocyte Esterase 1+ H (Negative) Urine RBC 5-10 H (0-5) /hpf Urine WBC 10-20 H (0-5) /hpf Ur Epithelial Cells 5-10 H (0-5) /hpf Urine Bacteria Moderate H (FEW) /hpf Urine Mucus Few (FEW) /hpf SARS-CoV-2 RNA (CURTIS) (NEGATIVE) 08/02/20 08/02/20 Range/Units 05:00 05:00 WBC (3.98-10.04) K/mm3 RBC (3.98-5.22) M/mm3 Hgb (11.2-15.7) gm/dl Hct (34.1-44.9) % MCV (79.4-94.8) fl MCH (25.6-32.2) pg MCHC (32.2-35.5) g/dl RDW Std Deviation (36.4-46.3) fL Plt Count (182-369) K/mm3 MPV (9.4-12.3) fl Neut % (Auto) (34.0-71.1) % Lymph % (Auto) (19.3-51.7) % [place] % (Auto) (4.7-12.5) % Eos % (Auto) (0.7-5.8) Baso % (Auto) (0.1-1.2) % Neut # (Auto) (1.56-6.13) K/mm3 Lymph # (Auto) (1.18-3.74) K/mm3 [place] # (Auto) (0.24-0.36) K/mm3 Eos # (Auto) (0.04-0.36) K/mm3 Baso # (Auto) (0.01-0.08) K/mm3 Manual Slide Review PT (9.7-12.0) SECONDS INR APTT (21.7-31.4) SECONDS D-Dimer, Quantitative 2.43 H (0.19-0.50) mg/L Sodium 141 (136-145) mEq/L Potassium 4.4 (3.5-5.1) mEq/L Chloride 104 (98-107) mEq/L Carbon Dioxide 29 (21-32) mEq/L Anion Gap 12.4 (5-15) BUN 17 (7-18) mg/dL Creatinine 0.8 (0.55-1.02) mg/dL Est Cr Clr Drug Dosing 72.63 mL/min Estimated GFR (MDRD) > 60 (>60) mL/min BUN/Creatinine Ratio 21.3 H (14-18) Glucose 135 H (74-106) mg/dL Lactic Acid (0.4-2.0) mmol/L Calcium 8.7 (8.5-10.1) mg/dL Phosphorus 4.4 (2.6-4.7) mg/dL Magnesium 2.3 (1.8-2.4) mg/dl Ferritin (8-252) ng/ml Total Bilirubin 0.4 (0.2-1.0) mg/dL Direct Bilirubin (0.0-0.2) mg/dl Indirect Bilirubin AST 31 (15-37) U/L ALT 40 (14-59) U/L Alkaline Phosphatase 111 (46-116) U/L Lactate Dehydrogenase (81-234) U/L C-Reactive Protein 16.9 H* (<1.0) mg/dL Total Protein 7.3 (6.4-8.2) g/dl Albumin 2.7 L (3.4-5.0) g/dl Globulin 4.6 gm/dL Albumin/Globulin Ratio 0.6 L (1-2) Vitamin D 25-Hydroxy 92.2 (30.0-100.0) ng/ml Urine Color (Yellow) Urine Appearance (Clear) Urine pH (5.0-8.0) Ur Specific Rice (1.005-1.030) Urine Protein (Negative) Urine Glucose (UA) (Negative) Urine Ketones (Negative) Urine Occult Blood (Negative) Urine Nitrite (Negative) Urine Bilirubin (Negative) Urine Urobilinogen (0.2-1.0) Ur Leukocyte Esterase (Negative) Urine RBC (0-5) /hpf Urine WBC (0-5) /hpf Ur Epithelial Cells (0-5) /hpf Urine Bacteria (FEW) /hpf Urine Mucus (FEW) /hpf SARS-CoV-2 RNA (CURTIS) (NEGATIVE) Result Diagrams: 08/02/20 05:00 08/02/20 05:00 Sepsis Event Note - Evaluation Sepsis Screening Result: No Definite Risk - Focused Exam Vital Signs: Vital Signs Temp Pulse Resp BP Pulse Ox Pulse Ox 08/02/20 11:29 97.7 F 62 16 113/53 L 92 L 08/02/20 08:35 98 08/02/20 07:22 97.5 F 56 L 16 104/59 L 100 08/02/20 04:02 97.9 F 64 18 96/54 L 100 - Problem List & Annotations (1) COVID-19 SNOMED Code(s): 171710792 Code(s): U07.1 - COVID-19 Status: Acute Current Visit: Yes (2) Hypoxia SNOMED Code(s): 091654714 Code(s): R09.02 - HYPOXEMIA Status: Acute Current Visit: Yes (3) Pneumonia due to COVID-19 virus SNOMED Code(s): 494386073607109390 Code(s): U07.1 - COVID-19; J12.82 - PNEUMONIA DUE TO CORONAVIRUS DISEASE 2019 Status: Acute Current Visit: Yes - Problem List Review Problem List Initiated/Reviewed/Updated: Yes - My Orders Last 24 Hours: My Active Orders 08/01/20 Dinner Regular Diet [DIET] 08/01/20 17:25 Oxygen Therapy [RC] PRN Up ad Lfores [RC] BID VTE/DVT Education [RC] DAILY Vital Signs [RC] Q4HR Respiratory Care Assess and Treatment [CONS] Routine Acetaminophen [TylenoL] 650 mg PO Q4H PRN Ibuprofen [Motrin] 600 mg PO Q6H PRN Ondansetron [Zofran] 4 mg IV Q4H PRN Resuscitation Status Routine 08/01/20 17:30 Positioning, Patient [RC] BID RT Incentive Spirometry [RC] ASDIRECTED Isolation [COMM] Stat 08/01/20 17:35 RT Chest Physiotherapy [RC] ASDIRECTED Benzonatate [Tessalon Perles] 100 mg PO QID PRN Codeine/guaiFENesin [Robitussin AC] 5 ml PO Q4H PRN 08/01/20 17:36 Albuterol [Proventil HFA] See Dose Instructions INH Q2H PRN 08/01/20 17:37 RT Post Treatment Assessment [RC] Click to Edit RT Pre-Treatment Assessment [RC] Click to Edit 08/01/20 17:45 Aspirin [Ecotrin] 325 mg PO DAILY Azithromycin [Zithromax] 500 mg Sodium Chloride 0.9% [Normal Saline (AdvBag)] 250 ml IV Q24H Cholecalciferol (Vitamin D3) [Vitamin D3] 5,000 unit PO DAILY Zinc Sulfate [Zincate] 220 mg PO DAILY cefTRIAXone [Rocephin] 2 gm Sodium Chloride 0.9% [Normal Saline] 100 ml IV Q24H 08/01/20 18:43 Patient Status [ADT] Routine 08/01/20 21:00 Famotidine [Pepcid] 20 mg PO BID Melatonin 9 mg PO BEDTIME 08/02/20 09:00 Enoxaparin [Lovenox] 40 mg SUBCUT DAILY dexAMETHasone 6 mg PO DAILY 08/02/20 16:00 Remdesivir 100 mg Sodium Chloride 0.9% [Normal Saline] 100 ml IV Q24H 08/02/20 21:00 DULoxetine 60 mg PO BEDTIME Propranolol HCl [Propranolol HCl ER] 120 mg PO BEDTIME 08/03/20 05:11 C-REACTIVE PROTEIN [CHEM] AM CBC WITH AUTO DIFF [HEME] AM CMP [COMPREHENSIVE METABOLIC PN,CMP] [CHEM] AM DD [D-DIMER QUANTITATIVE] [COAG] AM MAGNESIUM [CHEM] AM PHOSPHORUS [CHEM] AM 08/04/20 05:11 C-REACTIVE PROTEIN [CHEM] AM CBC WITH AUTO DIFF [HEME] AM CMP [COMPREHENSIVE METABOLIC PN,CMP] [CHEM] AM DD [D-DIMER QUANTITATIVE] [COAG] AM MAGNESIUM [CHEM] AM PHOSPHORUS [CHEM] AM 08/05/20 05:11 C-REACTIVE PROTEIN [CHEM] AM CBC WITH AUTO DIFF [HEME] AM CMP [COMPREHENSIVE METABOLIC PN,CMP] [CHEM] AM DD [D-DIMER QUANTITATIVE] [COAG] AM MAGNESIUM [CHEM] AM PHOSPHORUS [CHEM] AM 08/06/20 05:11 C-REACTIVE PROTEIN [CHEM] AM CBC WITH AUTO DIFF [HEME] AM CMP [COMPREHENSIVE METABOLIC PN,CMP] [CHEM] AM DD [D-DIMER QUANTITATIVE] [COAG] AM MAGNESIUM [CHEM] AM PHOSPHORUS [CHEM] AM 08/07/20 05:11 C-REACTIVE PROTEIN [CHEM] AM CBC WITH AUTO DIFF [HEME] AM CMP [COMPREHENSIVE METABOLIC PN,CMP] [CHEM] AM DD [D-DIMER QUANTITATIVE] [COAG] AM MAGNESIUM [CHEM] AM PHOSPHORUS [CHEM] AM - Plan Plan:: Assessment 55-year-old female that was exposed to someone with Covid approximately 2 weeks ago has been symptomatic for about that long. She was Covid positive in the ER. Oxygen saturations were in the low 90s at rest and dropped into the 80s with activity. Chest x-ray is consistent with Covid pneumonia. COVID-19 Viral pneumonia * Symptomatic for approximately 2 weeks * FiO2 is at 1 L/min to keep oxygen sats in the low 90s or above * WBC decreased to 3.8, creatinine 0.8, glucose 135, C-reactive protein increased to 16.9, alkaline phosphatase decreased to 111, albumin decreased to 2.7 * Remdesivir 2/5 * Dexamethasone 2/10 * Rocephin 2/5 * Azithromycin 2/3 Plan * Admit to medical floor on strict isolation * Continue remdesivir, dexamethasone, Rocephin, azithromycin * Continue aspirin, melatonin, zinc, Pepcid, and vitamin D * FiO2 to keep SPO2 greater than 88% * Follow liver enzymes daily Mild hyponatremia * Sodium 13 * Likely secondary to poor intake * Given a liter of NS bolus in the emergency department Plan * Follow daily Acute renal injuryresolved * Creatinine down 0.8 with estimated GFR greater than 60 * Likely secondary to hypovolemia Plan * DC fluids * Follow daily Possible UTI * 10- 20 WBCs but 5-10 epithelial cells. Consider contamination * Patient on Rocephin for Covid Plan * Urine culture * Continue Rocephin Chronic: Hard of hearing, familial tremors, anxiety and depression. Plan continue home meds VTE prophylaxis with Lovenox CODE STATUS full code
[2020-08-02] MEDS: REMDESIVIR 100 MG in Sodium Chloride 0.9% 100 ML IV SCH (15:22)
[2020-08-02] MEDS: Azithromycin 500 MG in Sodium Chloride 0.9% 250 ML IV SCH (16:46)
[2020-08-02] MEDS: cefTRIAXone 2 GM in Sodium Chloride 0.9% 100 ML IV SCH (17:53)
[2020-08-02] MEDS: DULoxetine 30 MG Cap PO SCH (21:09)
[2020-08-02] MEDS: Propranolol 60 MG Cap.ER PO SCH (21:09)
[2020-08-02] MEDS: Melatonin 3 MG Tab PO SCH (21:10)
[2020-08-03] MEDS: Enoxaparin 40 MG/0.4 ML Syringe SUBCUT SCH (09:20)
[2020-08-03] MEDS: Cholecalciferol (Vitamin D3) 5,000 UNIT Cap PO SCH (09:20)
[2020-08-03] MEDS: Aspirin 325 MG Tab.EC PO SCH (09:20)
[2020-08-03] MEDS: Zinc Sulfate 220 MG Cap PO SCH (09:20)
[2020-08-03] MEDS: Dexamethasone 4 MG Tab PO SCH (09:20)
[2020-08-03] MEDS: Famotidine 20 MG Tab PO SCH ×2 (09:20→21:03)
--- NOTE | 2020-08-03 09:28 | PCM.PN ---
- General Info Date of Service: 08/03/20 Admission Dx/Problem (Free Text): COVID-19 positive test (U07.1, COVID-19) with Acute Pneumonia (J12.89, Other viral pneumonia) Subjective Update: In to see Alicia. She is sitting up in bed and states she feels pretty good. She was able to be weaned off of oxygen. He still reports a cough, malaise, and weakness. WBC remains normal at 6.38. D-dimer is improved to 0.47. Sodium 144. Anion gap is slightly increased at 15.3. BUN is 20. Creatinine 0.8. GFR is greater than 60. Liver enzymes remain grossly within normal limits and her CRP has decreased to 11.6. Albumin is up from yesterday evening at 2.6. She has been utilizing her incentive spirometry and Acapella. We discussed proning. She states her son is starting to demonstrate some of her initial symptoms, but he has not been tested for Covid. Advised that he may benefit from having a formal test and they will do this right at his car. She reports prior lung scan showing atelectasis and we discussed what this is and how it can impact her Covid diagnosis. Overall she continues to improve. Length of stay likely 2-3 more days to receive her 5 doses of remdesivir. Functional Status: Reports: Pain Controlled, Tolerating Diet, Ambulating, Urin ating, Incentive Spirometry, Other (Acapella ). Denies: New Symptoms - Review of Systems General: Reports: Weakness, Fatigue, Malaise, Appetite. Denies: Fever, Chills HEENT: Reports: No Symptoms. Denies: Headaches, Sore Throat Pulmonary: Reports: Shortness of Breath, Cough. Denies: Sputum, Wheezing Cardiovascular: Reports: Dyspnea on Exertion. Denies: Chest Pain, Palpitations Gastrointestinal: Reports: No Symptoms. Denies: Abdominal Pain, Constipation, Decreased Appetite, Diarrhea, Nausea, Vomiting Genitourinary: Reports: No Symptoms. Denies: Pain Musculoskeletal: Reports: No Symptoms Skin: Reports: No Symptoms. Denies: Cyanosis Neurological: Reports: No Symptoms. Denies: Confusion, Pre-Existing Deficit, Trouble Speaking, Difficulty Walking, Gait Disturbance Psychiatric: Reports: No Symptoms - Patient Data Vitals - Most Recent: Last Vital Signs Temp 97.7 F 08/03/20 07:28 Pulse 58 L 08/03/20 07:28 Resp 16 08/03/20 07:28 BP 118/64 08/03/20 07:28 Pulse Ox 98 08/03/20 08:05 Weight - Most Recent: 183 lb I&O - Last 24 Hours: Intake & Output 08/02/20 08/03/20 08/03/20 22:59 06:59 14:59 Intake Total 1750 800 Output Total 250 1200 Balance 1500 -400 Lab Results Last 24 Hours: Laboratory Results - last 24 hr 08/02/20 08/03/20 08/03/20 Range/Units 16:19 04:46 04:46 WBC 6.38 (3.98-10.04) K/mm3 RBC 4.28 (3.98-5.22) M/mm3 Hgb 11.7 (11.2-15.7) gm/dl Hct 37.3 (34.1-44.9) % MCV 87.1 (79.4-94.8) fl MCH 27.3 (25.6-32.2) pg MCHC 31.4 L (32.2-35.5) g/dl RDW Std Deviation 42.5 (36.4-46.3) fL Plt Count 260 (182-369) K/mm3 MPV 10.1 (9.4-12.3) fl Neut % (Auto) 69.2 (34.0-71.1) % Lymph % (Auto) 18.3 L (19.3-51.7) % [place] % (Auto) 12.1 (4.7-12.5) % Eos % (Auto) 0 L (0.7-5.8) Baso % (Auto) 0.2 (0.1-1.2) % Neut # (Auto) 4.42 (1.56-6.13) K/mm3 Lymph # (Auto) 1.17 L (1.18-3.74) K/mm3 [place] # (Auto) 0.77 H (0.24-0.36) K/mm3 Eos # (Auto) 0.00 L (0.04-0.36) K/mm3 Baso # (Auto) 0.01 (0.01-0.08) K/mm3 D-Dimer, Quantitative 0.47 (0.19-0.50) mg/L Sodium (136-145) mEq/L Potassium (3.5-5.1) mEq/L Chloride (98-107) mEq/L Carbon Dioxide (21-32) mEq/L Anion Gap (5-15) BUN (7-18) mg/dL Creatinine (0.55-1.02) mg/dL Est Cr Clr Drug Dosing mL/min Estimated GFR (MDRD) (>60) mL/min BUN/Creatinine Ratio (14-18) Glucose (74-106) mg/dL Calcium (8.5-10.1) mg/dL Phosphorus (2.6-4.7) mg/dL Magnesium (1.8-2.4) mg/dl Total Bilirubin 0.4 (0.2-1.0) mg/dL Direct Bilirubin 0.10 (0.0-0.2) mg/dl Indirect Bilirubin 0.30 AST 30 (15-37) U/L ALT 40 (14-59) U/L Alkaline Phosphatase 109 (46-116) U/L C-Reactive Protein (<1.0) mg/dL Total Protein 7.0 (6.4-8.2) g/dl Albumin 2.5 L (3.4-5.0) g/dl Globulin 4.5 gm/dL Albumin/Globulin Ratio 0.6 L (1-2) 08/03/20 Range/Units 04:46 WBC (3.98-10.04) K/mm3 RBC (3.98-5.22) M/mm3 Hgb (11.2-15.7) gm/dl Hct (34.1-44.9) % MCV (79.4-94.8) fl MCH (25.6-32.2) pg MCHC (32.2-35.5) g/dl RDW Std Deviation (36.4-46.3) fL Plt Count (182-369) K/mm3 MPV (9.4-12.3) fl Neut % (Auto) (34.0-71.1) % Lymph % (Auto) (19.3-51.7) % [place] % (Auto) (4.7-12.5) % Eos % (Auto) (0.7-5.8) Baso % (Auto) (0.1-1.2) % Neut # (Auto) (1.56-6.13) K/mm3 Lymph # (Auto) (1.18-3.74) K/mm3 [place] # (Auto) (0.24-0.36) K/mm3 Eos # (Auto) (0.04-0.36) K/mm3 Baso # (Auto) (0.01-0.08) K/mm3 D-Dimer, Quantitative (0.19-0.50) mg/L Sodium 144 (136-145) mEq/L Potassium 4.3 (3.5-5.1) mEq/L Chloride 106 (98-107) mEq/L Carbon Dioxide 27 (21-32) mEq/L Anion Gap 15.3 H (5-15) BUN 20 H (7-18) mg/dL Creatinine 0.8 (0.55-1.02) mg/dL Est Cr Clr Drug Dosing 73.03 mL/min Estimated GFR (MDRD) > 60 (>60) mL/min BUN/Creatinine Ratio 25.0 H (14-18) Glucose 125 H (74-106) mg/dL Calcium 9.2 (8.5-10.1) mg/dL Phosphorus 3.4 (2.6-4.7) mg/dL Magnesium 2.2 (1.8-2.4) mg/dl Total Bilirubin 0.4 (0.2-1.0) mg/dL Direct Bilirubin (0.0-0.2) mg/dl Indirect Bilirubin AST 27 (15-37) U/L ALT 36 (14-59) U/L Alkaline Phosphatase 120 H (46-116) U/L C-Reactive Protein 11.6 H* (<1.0) mg/dL Total Protein 7.1 (6.4-8.2) g/dl Albumin 2.6 L (3.4-5.0) g/dl Globulin 4.5 gm/dL Albumin/Globulin Ratio 0.6 L (1-2) Med Orders - Current: Current Medications Acetaminophen (Acetaminophen 325 Mg Tab) 650 mg PO Q4H PRN PRN Reason: Pain (Mild 1-3)/fever Albuterol (Albuterol 6.7 Gm Inhaler) 0 gm INH Q2H PRN PRN Reason: Shortness of Breath Aspirin (Aspirin 325 Mg Tab.Ec) 325 mg PO DAILY [facility] Last Admin: 08/03/20 09:20 Dose: 325 mg Documented by: Benzonatate (Benzonatate 100 Mg Cap) 100 mg PO QID PRN PRN Reason: Cough Cholecalciferol (Cholecalciferol (Vitamin D3) 5,000 Unit Cap) 5,000 unit PO DAILY [facility] Last Admin: 08/03/20 09:20 Dose: 5,000 unit Documented by: Dexamethasone (Dexamethasone 4 Mg Tab) 6 mg PO DAILY [facility] Stop: 08/10/20 09:01 Last Admin: 08/03/20 09:20 Dose: 6 mg Documented by: Duloxetine HCl (Duloxetine 30 Mg Cap) 60 mg PO BEDTIME [facility] Last Admin: 08/02/20 21:09 Dose: 60 mg Documented by: Enoxaparin Sodium (Enoxaparin 40 Mg/0.4 Ml Syringe) 40 mg SUBCUT DAILY [facility] Last Admin: 08/03/20 09:20 Dose: 40 mg Documented by: Famotidine (Famotidine 20 Mg Tab) 20 mg PO BID [facility] Last Admin: 08/03/20 09:20 Dose: 20 mg Documented by: Guaifenesin/Codeine Phosphate (Codeine/Guaifenesin 10-100 Mg/5 Ml Syrup 5 Ml Cup) 5 ml PO Q4H PRN PRN Reason: Cough Remdesivir 100 mg/ Sodium (Chloride) 100 mls @ 100 mls/hr IV Q24H [facility] Stop: 08/05/20 16:59 Last Admin: 08/02/20 15:22 Dose: 100 mls/hr Documented by: Ceftriaxone Sodium 2 gm/ (Sodium Chloride) 100 mls @ 200 mls/hr IV Q24H [facility] Stop: 08/05/20 18:14 Last Admin: 08/02/20 17:53 Dose: 200 mls/hr Documented by: Azithromycin 500 mg/ Sodium (Chloride) 250 mls @ 250 mls/hr IV Q24H [facility] Stop: 08/03/20 18:44 Last Admin: 08/02/20 16:46 Dose: 250 mls/hr Documented by: Ibuprofen (Ibuprofen 600 Mg Tab) 600 mg PO Q6H PRN PRN Reason: Pain (moderate 4-6) Melatonin (Melatonin 3 Mg Tab) 9 mg PO BEDTIME [facility] Last Admin: 08/02/20 21:10 Dose: Not Given Documented by: Ondansetron HCl (Ondansetron 4 Mg/2 Ml Sdv) 4 mg IV Q4H PRN PRN Reason: Nausea/Vomiting Propranolol HCl (Propranolol 60 Mg Cap.Er) 120 mg PO BEDTIME [facility] Last Admin: 08/02/20 21:09 Dose: 120 mg Documented by: Sodium Chloride (Sodium Chloride 0.9% 10 Ml Syringe) 10 ml FLUSH ASDIRECTED PRN PRN Reason: Keep Vein Open Last Admin: 08/01/20 13:43 Dose: 10 ml Documented by: Zinc Sulfate (Zinc Sulfate 220 Mg Cap) 220 mg PO DAILY [facility] Last Admin: 08/03/20 09:20 Dose: 220 mg Documented by: Discontinued Medications Dexamethasone (Dexamethasone 4 Mg/Ml Sdv) 6 mg IVPUSH ONETIME ONE Stop: 08/01/20 16:11 Last Admin: 08/01/20 16:46 Dose: 6 mg Documented by: Sodium Chloride (Normal Saline) 1,000 mls @ 1,000 mls/hr IV .BOLUS [facility] Last Admin: 08/01/20 13:45 Dose: 1,000 mls/hr Documented by: Remdesivir 200 mg/ Sodium (Chloride) 250 mls @ 250 mls/hr IV ONETIME ONE Stop: 08/01/20 17:44 Last Admin: 08/01/20 16:49 Dose: 250 mls/hr Documented by: - Exam Quality Assessment: DVT Prophylaxis. No: Supplemental Oxygen, Urine Catheter General: Alert, Oriented, Cooperative, No Acute Distress HEENT: Pupils Equal, Pupils Reactive, Mucous Membr. Moist/[place] Neck: Supple, Trachea Midline Lungs: Normal Respiratory Effort, Decreased Breath Sounds, Crackles Cardiovascular: Regular Rate, Regular Rhythm GI/Abdominal Exam: Normal Bowel Sounds, Soft, Non-Tender, No Distention (Female) Exam: Deferred Back Exam: Normal Inspection, Full Range of Motion Extremities: Normal Inspection, Normal Range of Motion, Non-Tender, No Pedal Edema, Normal Capillary Refill Peripheral Pulses: 2+: Radial (L), Radial (R), Dorsalis Pedis (L), Dorsalis Pedis (R) Skin: Warm, Dry, Intact Neurological: No New Focal Deficit Psy/Mental Status: Alert, Normal Affect, Normal Mood - Patient Data Lab Results Last 24 hrs: Laboratory Results - last 24 hr 08/02/20 08/03/20 08/03/20 Range/Units 16:19 04:46 04:46 WBC 6.38 (3.98-10.04) K/mm3 RBC 4.28 (3.98-5.22) M/mm3 Hgb 11.7 (11.2-15.7) gm/dl Hct 37.3 (34.1-44.9) % MCV 87.1 (79.4-94.8) fl MCH 27.3 (25.6-32.2) pg MCHC 31.4 L (32.2-35.5) g/dl RDW Std Deviation 42.5 (36.4-46.3) fL Plt Count 260 (182-369) K/mm3 MPV 10.1 (9.4-12.3) fl Neut % (Auto) 69.2 (34.0-71.1) % Lymph % (Auto) 18.3 L (19.3-51.7) % [place] % (Auto) 12.1 (4.7-12.5) % Eos % (Auto) 0 L (0.7-5.8) Baso % (Auto) 0.2 (0.1-1.2) % Neut # (Auto) 4.42 (1.56-6.13) K/mm3 Lymph # (Auto) 1.17 L (1.18-3.74) K/mm3 [place] # (Auto) 0.77 H (0.24-0.36) K/mm3 Eos # (Auto) 0.00 L (0.04-0.36) K/mm3 Baso # (Auto) 0.01 (0.01-0.08) K/mm3 D-Dimer, Quantitative 0.47 (0.19-0.50) mg/L Sodium (136-145) mEq/L Potassium (3.5-5.1) mEq/L Chloride (98-107) mEq/L Carbon Dioxide (21-32) mEq/L Anion Gap (5-15) BUN (7-18) mg/dL Creatinine (0.55-1.02) mg/dL Est Cr Clr Drug Dosing mL/min Estimated GFR (MDRD) (>60) mL/min BUN/Creatinine Ratio (14-18) Glucose (74-106) mg/dL Calcium (8.5-10.1) mg/dL Phosphorus (2.6-4.7) mg/dL Magnesium (1.8-2.4) mg/dl Total Bilirubin 0.4 (0.2-1.0) mg/dL Direct Bilirubin 0.10 (0.0-0.2) mg/dl Indirect Bilirubin 0.30 AST 30 (15-37) U/L ALT 40 (14-59) U/L Alkaline Phosphatase 109 (46-116) U/L C-Reactive Protein (<1.0) mg/dL Total Protein 7.0 (6.4-8.2) g/dl Albumin 2.5 L (3.4-5.0) g/dl Globulin 4.5 gm/dL Albumin/Globulin Ratio 0.6 L (1-2) 08/03/20 Range/Units 04:46 WBC (3.98-10.04) K/mm3 RBC (3.98-5.22) M/mm3 Hgb (11.2-15.7) gm/dl Hct (34.1-44.9) % MCV (79.4-94.8) fl MCH (25.6-32.2) pg MCHC (32.2-35.5) g/dl RDW Std Deviation (36.4-46.3) fL Plt Count (182-369) K/mm3 MPV (9.4-12.3) fl Neut % (Auto) (34.0-71.1) % Lymph % (Auto) (19.3-51.7) % [place] % (Auto) (4.7-12.5) % Eos % (Auto) (0.7-5.8) Baso % (Auto) (0.1-1.2) % Neut # (Auto) (1.56-6.13) K/mm3 Lymph # (Auto) (1.18-3.74) K/mm3 [place] # (Auto) (0.24-0.36) K/mm3 Eos # (Auto) (0.04-0.36) K/mm3 Baso # (Auto) (0.01-0.08) K/mm3 D-Dimer, Quantitative (0.19-0.50) mg/L Sodium 144 (136-145) mEq/L Potassium 4.3 (3.5-5.1) mEq/L Chloride 106 (98-107) mEq/L Carbon Dioxide 27 (21-32) mEq/L Anion Gap 15.3 H (5-15) BUN 20 H (7-18) mg/dL Creatinine 0.8 (0.55-1.02) mg/dL Est Cr Clr Drug Dosing 73.03 mL/min Estimated GFR (MDRD) > 60 (>60) mL/min BUN/Creatinine Ratio 25.0 H (14-18) Glucose 125 H (74-106) mg/dL Calcium 9.2 (8.5-10.1) mg/dL Phosphorus 3.4 (2.6-4.7) mg/dL Magnesium 2.2 (1.8-2.4) mg/dl Total Bilirubin 0.4 (0.2-1.0) mg/dL Direct Bilirubin (0.0-0.2) mg/dl Indirect Bilirubin AST 27 (15-37) U/L ALT 36 (14-59) U/L Alkaline Phosphatase 120 H (46-116) U/L C-Reactive Protein 11.6 H* (<1.0) mg/dL Total Protein 7.1 (6.4-8.2) g/dl Albumin 2.6 L (3.4-5.0) g/dl Globulin 4.5 gm/dL Albumin/Globulin Ratio 0.6 L (1-2) Result Diagrams: 08/03/20 04:46 08/03/20 04:46 Sepsis Event Note - Evaluation Sepsis Screening Result: No Definite Risk - Focused Exam Vital Signs: Vital Signs Temp Pulse Resp BP Pulse Ox Pulse Ox 08/03/20 08:05 98 08/03/20 07:28 97.7 F 58 L 16 118/64 97 08/03/20 06:31 91 L 08/03/20 05:48 97.9 F 59 L 14 119/62 94 L - Problem List & Annotations (1) Hyponatremia SNOMED Code(s): 95903504 Code(s): E87.1 - HYPO-OSMOLALITY AND HYPONATREMIA Status: Resolved Priority: Medium Current Visit: Yes (2) COVID-19 SNOMED Code(s): 537712983 Code(s): U07.1 - COVID-19 Status: Acute Priority: High Current Visit: Yes (3) Hypoxia SNOMED Code(s): 229656797 Code(s): R09.02 - HYPOXEMIA Status: Acute Priority: High Current Visit: Yes (4) Pneumonia due to COVID-19 virus SNOMED Code(s): 682523622191325210 Code(s): U07.1 - COVID-19; J12.82 - PNEUMONIA DUE TO CORONAVIRUS DISEASE 2019 Status: Acute Priority: High Current Visit: Yes (5) Viral pneumonia SNOMED Code(s): 31606726 Code(s): J12.9 - VIRAL PNEUMONIA, UNSPECIFIED Status: Acute Priority: High Current Visit: Yes (6) BIBI (acute kidney injury) SNOMED Code(s): 81096272, 69020069 Code(s): N17.9 - ACUTE KIDNEY FAILURE, UNSPECIFIED Status: Resolved Priority: High Current Visit: Yes (7) Elevated d-dimer SNOMED Code(s): 375932198 Code(s): R79.89 - OTHER SPECIFIED ABNORMAL FINDINGS OF BLOOD CHEMISTRY Status: Resolved Priority: High Current Visit: Yes (8) Hyperglycemia SNOMED Code(s): 85346203 Code(s): R73.9 - HYPERGLYCEMIA, UNSPECIFIED Status: Acute Priority: Me dium Current Visit: Yes - Problem List Review Problem List Initiated/Reviewed/Updated: Yes - Plan Plan:: Assessment 55-year-old female that was exposed to someone with Covid approximately 2 weeks ago has been symptomatic for about that long. She was Covid positive in the ER. Oxygen saturations were in the low 90s at rest and dropped into the 80s with activity. Chest x-ray is consistent with Covid pneumonia. COVID-19 Viral pneumonia * Symptomatic for approximately 2 weeks * FiO2 is at 1 L/min to keep oxygen sats in the low 90s or above * WBC decreased to 3.8-->6.38, creatinine 0.8, glucose 135-->125, C-reactive protein increased to 16.9-->11.6, alkaline phosphatase decreased to 111-->109-->120, albumin decreased to 2.7-->2.5-->2.1 * Remdesivir 3/5 * Dexamethasone 07/06 * Rocephin 07/01 * Azithromycin 06/29 Plan * Admit to medical floor on strict isolation * Continue remdesivir, dexamethasone, Rocephin, azithromycin * Continue aspirin, melatonin, zinc, Pepcid, and vitamin D * FiO2 to keep SPO2 greater than 88% * Follow liver enzymes daily * Consult RT * Airborne/contact isolation Mild hyponatremia, Resolved * Sodium 134-->141 * Likely secondary to poor intake * Given a liter of NS bolus in the emergency department * Follow labs Plan * Follow daily Acute renal injuryresolved * Creatinine down 0.8 with estimated GFR greater than 60 * Likely secondary to hypovolemia Plan * Follow daily Possible UTI * 10- 20 WBCs but 5-10 epithelial cells. Consider contamination * Patient on Rocephin for Covid Plan * Continue Rocephin Hyperglycemia * Blood glucose readings of 120-130s * Likely 2/2 steroid Plan * Monitor Chronic: Hard of hearing, familial tremors, anxiety and depression. Plan continue home meds VTE prophylaxis with Lovenox CODE STATUS full code
[2020-08-03] MEDS: REMDESIVIR 100 MG in Sodium Chloride 0.9% 100 ML IV SCH (15:46)
[2020-08-03] MEDS: Azithromycin 500 MG in Sodium Chloride 0.9% 250 ML IV SCH (16:44)
[2020-08-03] MEDS: cefTRIAXone 2 GM in Sodium Chloride 0.9% 100 ML IV SCH (17:54)
[2020-08-03] MEDS: Propranolol 60 MG Cap.ER PO SCH (21:02)
[2020-08-03] MEDS: Melatonin 3 MG Tab PO SCH (21:04)
[2020-08-03] MEDS: DULoxetine 30 MG Cap PO SCH (21:04)
--- NOTE | 2020-08-04 07:22 | PCM.PN ---
- General Info Date of Service: 08/04/20 Admission Dx/Problem (Free Text): COVID-19 positive test (U07.1, COVID-19) with Acute Pneumonia (J12.89, Other viral pneumonia) Subjective Update: In to see Sindy. She reports she feels a little bit worse today and cannot achieve is high of numbers on her I-S. She is still not requiring oxygen. Labs remained stable. Plan will be to finish her treatment tomorrow around noon and then discharge her pending continued stability. She continues to utilize her incentive spirometry and Acapella and this was encouraged. Encouraged to prone. Otherwise appears to be doing quite well. Functional Status: Reports: Pain Controlled, Tolerating Diet, Ambulating, Urinating, Incentive Spirometry, Other (Acapella ). Denies: New Symptoms - Review of Systems General: Reports: Weakness, Fatigue, Malaise. Denies: Fever, Chills HEENT: Reports: No Symptoms. Denies: Headaches, Sore Throat Pulmonary: Reports: Shortness of Breath, Cough. Denies: Sputum, Wheezing Cardiovascular: Reports: No Symptoms, Dyspnea on Exertion. Denies: Chest Pain, Palpitations, Edema Gastrointestinal: Reports: No Symptoms. Denies: Abdominal Pain, Constipation, Diarrhea, Nausea, Vomiting Genitourinary: Reports: No Symptoms. Denies: Pain Musculoskeletal: Reports: No Symptoms Skin: Reports: No Symptoms. Denies: Cyanosis Neurological: Reports: Tremors (baseline ), Weakness. Denies: Confusion, Pre-Existing Deficit, Difficulty Walking, Gait Disturbance Psychiatric: Reports: No Symptoms - Patient Data Vitals - Most Recent: Last Vital Signs Temp 97.7 F 08/04/20 04:04 Pulse 58 L 08/04/20 04:04 Resp 20 08/04/20 04:04 BP 104/66 08/04/20 04:04 Pulse Ox 93 L 08/04/20 04:04 Weight - Most Recent: 187 lb 12.8 oz I&O - Last 24 Hours: Intake & Output 08/03/20 08/04/20 08/04/20 22:59 06:59 14:59 Intake Total 1650 800 Output Total 1950 1300 Balance -300 -500 Lab Results Last 24 Hours: Laboratory Results - last 24 hr 08/04/20 08/04/20 08/04/20 Range/Units 04:59 04:59 04:59 WBC 6.36 (3.98-10.04) K/mm3 RBC 4.07 (3.98-5.22) M/mm3 Hgb 11.2 (11.2-15.7) gm/dl Hct 35.9 (34.1-44.9) % MCV 88.2 (79.4-94.8) fl MCH 27.5 (25.6-32.2) pg MCHC 31.2 L (32.2-35.5) g/dl RDW Std Deviation 44.5 (36.4-46.3) fL Plt Count 290 (182-369) K/mm3 MPV 10.5 (9.4-12.3) fl Neut % (Auto) 68.9 (34.0-71.1) % Lymph % (Auto) 19.8 (19.3-51.7) % [place]lier % (Auto) 10.8 (4.7-12.5) % Eos % (Auto) 0 L (0.7-5.8) Baso % (Auto) 0.2 (0.1-1.2) % Neut # (Auto) 4.38 (1.56-6.13) K/mm3 Lymph # (Auto) 1.26 (1.18-3.74) K/mm3 [place] # (Auto) 0.69 H (0.24-0.36) K/mm3 Eos # (Auto) 0.00 L (0.04-0.36) K/mm3 Baso # (Auto) 0.01 (0.01-0.08) K/mm3 D-Dimer, Quantitative 0.49 (0.19-0.50) mg/L Sodium 141 (136-145) mEq/L Potassium 4.2 (3.5-5.1) mEq/L Chloride 107 (98-107) mEq/L Carbon Dioxide 26 (21-32) mEq/L Anion Gap 12.2 (5-15) BUN 22 H (7-18) mg/dL Creatinine 0.8 (0.55-1.02) mg/dL Est Cr Clr Drug Dosing 73.03 mL/min Estimated GFR (MDRD) > 60 (>60) mL/min BUN/Creatinine Ratio 27.5 H (14-18) Glucose 127 H (74-106) mg/dL Calcium 8.6 (8.5-10.1) mg/dL Phosphorus 4.2 (2.6-4.7) mg/dL Magnesium 2.0 (1.8-2.4) mg/dl Total Bilirubin 0.3 (0.2-1.0) mg/dL AST 20 (15-37) U/L ALT 33 (14-59) U/L Alkaline Phosphatase 119 H (46-116) U/L C-Reactive Protein 5.2 H* (<1.0) mg/dL Total Protein 6.3 L (6.4-8.2) g/dl Albumin 2.5 L (3.4-5.0) g/dl Globulin 3.8 gm/dL Albumin/Globulin Ratio 0.7 L (1-2) Med Orders - Current: Current Medications Acetaminophen (Acetaminophen 325 Mg Tab) 650 mg PO Q4H PRN PRN Reason: Pain (Mild 1-3)/fever Albuterol (Albuterol 6.7 Gm Inhaler) 0 gm INH Q2H PRN PRN Reason: Shortness of Breath Aspirin (Aspirin 325 Mg Tab.Ec) 325 mg PO DAILY [facility] Last Admin: 08/03/20 09:20 Dose: 325 mg Documented by: Benzonatate (Benzonatate 100 Mg Cap) 100 mg PO QID PRN PRN Reason: Cough Cholecalciferol (Cholecalciferol (Vitamin D3) 5,000 Unit Cap) 5,000 unit PO DAILY [facility] Last Admin: 08/03/20 09:20 Dose: 5,000 unit Documented by: Dexamethasone (Dexamethasone 4 Mg Tab) 6 mg PO DAILY [facility] Stop: 08/10/20 09:01 Last Admin: 08/03/20 09:20 Dose: 6 mg Documented by: Duloxetine HCl (Duloxetine 30 Mg Cap) 60 mg PO BEDTIME [facility] Last Admin: 08/03/20 21:04 Dose: 60 mg Documented by: Enoxaparin Sodium (Enoxaparin 40 Mg/0.4 Ml Syringe) 40 mg SUBCUT DAILY [facility] Last Admin: 08/03/20 09:20 Dose: 40 mg Documented by: Famotidine (Famotidine 20 Mg Tab) 20 mg PO BID [facility] Last Admin: 08/03/20 21:03 Dose: 20 mg Documented by: Guaifenesin/Codeine Phosphate (Codeine/Guaifenesin 10-100 Mg/5 Ml Syrup 5 Ml Cup) 5 ml PO Q4H PRN PRN Reason: Cough Remdesivir 100 mg/ Sodium (Chloride) 100 mls @ 100 mls/hr IV Q24H [facility] Stop: 08/05/20 16:59 Last Admin: 08/03/20 15:46 Dose: 100 mls/hr Documented by: Ceftriaxone Sodium 2 gm/ (Sodium Chloride) 100 mls @ 200 mls/hr IV Q24H [facility] Stop: 08/05/20 18:14 Last Admin: 08/03/20 17:54 Dose: 200 mls/hr Documented by: Ibuprofen (Ibuprofen 600 Mg Tab) 600 mg PO Q6H PRN PRN Reason: Pain (moderate 4-6) Melatonin (Melatonin 3 Mg Tab) 9 mg PO BEDTIME [facility] Last Admin: 08/03/20 21:04 Dose: 9 mg Documented by: Ondansetron HCl (Ondansetron 4 Mg/2 Ml Sdv) 4 mg IV Q4H PRN PRN Reason: Nausea/Vomiting Propranolol HCl (Propranolol 60 Mg Cap.Er) 120 mg PO BEDTIME [facility] Last Admin: 08/03/20 21:02 Dose: 120 mg Documented by: Sodium Chloride (Sodium Chloride 0.9% 10 Ml Syringe) 10 ml FLUSH ASDIRECTED PRN PRN Reason: Keep Vein Open Last Admin: 08/01/20 13:43 Dose: 10 ml Documented by: Zinc Sulfate (Zinc Sulfate 220 Mg Cap) 220 mg PO DAILY [facility] Last Admin: 08/03/20 09:20 Dose: 220 mg Documented by: Discontinued Medications Dexamethasone (Dexamethasone 4 Mg/Ml Sdv) 6 mg IVPUSH ONETIME ONE Stop: 08/01/20 16:11 Last Admin: 08/01/20 16:46 Dose: 6 mg Documented by: Sodium Chloride (Normal Saline) 1,000 mls @ 1,000 mls/hr IV .BOLUS [facility] Last Admin: 08/01/20 13:45 Dose: 1,000 mls/hr Documented by: Remdesivir 200 mg/ Sodium (Chloride) 250 mls @ 250 mls/hr IV ONETIME ONE Stop: 08/01/20 17:44 Last Admin: 08/01/20 16:49 Dose: 250 mls/hr Documented by: Azithromycin 500 mg/ Sodium (Chloride) 250 mls @ 250 mls/hr IV Q24H [facility] Stop: 08/03/20 18:44 Last Admin: 08/03/20 16:44 Dose: 250 mls/hr Documented by: - Exam Quality Assessment: DVT Prophylaxis General: Alert, Oriented, Cooperative, No Acute Distress HEENT: Pupils Equal, Pupils Reactive, Mucous Membr. Moist/[place] Neck: Supple, Trachea Midline Lungs: Normal Respiratory Effort, Decreased Breath Sounds. No: Crackles, Rhonchi, Wheezing Cardiovascular: Regular Rate, Regular Rhythm GI/Abdominal Exam: Normal Bowel Sounds, Soft, Non-Tender, No Distention (Female) Exam: Deferred Back Exam: Normal Inspection, Full Range of Motion Extremities: Normal Inspection, Normal Range of Motion, Non-Tender, No Pedal Edema, Normal Capillary Refill Peripheral Pulses: 2+: Radial (L), Radial (R), Dorsalis Pedis (L), Dorsalis Pedis (R) Skin: Warm, Dry, Intact Neurological: No New Focal Deficit Psy/Mental Status: Alert, Normal Affect, Normal Mood - Patient Data Lab Results Last 24 hrs: Laboratory Results - last 24 hr 08/04/20 08/04/20 08/04/20 Range/Units 04:59 04:59 04:59 WBC 6.36 (3.98-10.04) K/mm3 RBC 4.07 (3.98-5.22) M/mm3 Hgb 11.2 (11.2-15.7) gm/dl Hct 35.9 (34.1-44.9) % MCV 88.2 (79.4-94.8) fl MCH 27.5 (25.6-32.2) pg MCHC 31.2 L (32.2-35.5) g/dl RDW Std Deviation 44.5 (36.4-46.3) fL Plt Count 290 (182-369) K/mm3 MPV 10.5 (9.4-12.3) fl Neut % (Auto) 68.9 (34.0-71.1) % Lymph % (Auto) 19.8 (19.3-51.7) % Collier % (Auto) 10.8 (4.7-12.5) % Eos % (Auto) 0 L (0.7-5.8) Baso % (Auto) 0.2 (0.1-1.2) % Neut # (Auto) 4.38 (1.56-6.13) K/mm3 Lymph # (Auto) 1.26 (1.18-3.74) K/mm3 [place] # (Auto) 0.69 H (0.24-0.36) K/mm3 Eos # (Auto) 0.00 L (0.04-0.36) K/mm3 Baso # (Auto) 0.01 (0.01-0.08) K/mm3 D-Dimer, Quantitative 0.49 (0.19-0.50) mg/L Sodium 141 (136-145) mEq/L Potassium 4.2 (3.5-5.1) mEq/L Chloride 107 (98-107) mEq/L Carbon Dioxide 26 (21-32) mEq/L Anion Gap 12.2 (5-15) BUN 22 H (7-18) mg/dL Creatinine 0.8 (0.55-1.02) mg/dL Est Cr Clr Drug Dosing 73.03 mL/min Estimated GFR (MDRD) > 60 (>60) mL/min BUN/Creatinine Ratio 27.5 H (14-18) Glucose 127 H (74-106) mg/dL Calcium 8.6 (8.5-10.1) mg/dL Phosphorus 4.2 (2.6-4.7) mg/dL Magnesium 2.0 (1.8-2.4) mg/dl Total Bilirubin 0.3 (0.2-1.0) mg/dL AST 20 (15-37) U/L ALT 33 (14-59) U/L Alkaline Phosphatase 119 H (46-116) U/L C-Reactive Protein 5.2 H* (<1.0) mg/dL Total Protein 6.3 L (6.4-8.2) g/dl Albumin 2.5 L (3.4-5.0) g/dl Globulin 3.8 gm/dL Albumin/Globulin Ratio 0.7 L (1-2) Result Diagrams: 08/04/20 04:59 08/04/20 04:59 Sepsis Event Note - Evaluation Sepsis Screening Result: No Definite Risk - Focused Exam Vital Signs: Vital Signs Temp Pulse Resp BP Pulse Ox 08/04/20 04:04 97.7 F 58 L 20 104/66 93 L 04/07/21 23:42 97.5 F 64 20 115/78 93 L 08/03/20 21:00 97.9 F 56 L 22 H 103/59 L 93 L - Problem List & Annotations (1) Hyponatremia SNOMED Code(s): 13603539 Code(s): E87.1 - HYPO-OSMOLALITY AND HYPONATREMIA Status: Resolved Priority: Medium Current Visit: Yes (2) COVID-19 SNOMED Code(s): 250710148 Code(s): U07.1 - COVID-19 Status: Acute Priority: High Current Visit: Yes (3) Hypoxia SNOMED Code(s): 949450018 Code(s): R09.02 - HYPOXEMIA Status: Acute Priority: High Current Visit: Yes (4) Pneumonia due to COVID-19 virus SNOMED Code(s): 611333463415384058 Code(s): U07.1 - COVID-19; J12.82 - PNEUMONIA DUE TO CORONAVIRUS DISEASE 2019 Status: Acute Priority: High Current Visit: Yes (5) Viral pneumonia SNOMED Code(s): 38787492 Code(s): J12.9 - VIRAL PNEUMONIA, UNSPECIFIED Status: Acute Priority: High Current Visit: Yes (6) BIBI (acute kidney injury) SNOMED Code(s): 40094346, 51925737 Code(s): N17.9 - ACUTE KIDNEY FAILURE, UNSPECIFIED Status: Resolved Priority: High Current Visit: Yes (7) Elevated d-dimer SNOMED Code(s): 199797842 Code(s): R79.89 - OTHER SPECIFIED ABNORMAL FINDINGS OF BLOOD CHEMISTRY Status: Resolved Priority: High Current Visit: Yes (8) Hyperglycemia SNOMED Code(s): 81045238 Code(s): R73.9 - HYPERGLYCEMIA, UNSPECIFIED Status: Acute Priority: Medium Current Visit: Yes - Problem List Review Problem List Initiated/Reviewed/Updated: Yes - Plan Plan:: Assessment 55-year-old female that was exposed to someone with Covid approximately 2 weeks ago has been symptomatic for about that long. She was Covid positive in the ER. Oxygen saturations were in the low 90s at rest and dropped into the 80s with activity. Chest x-ray is consistent with Covid pneumonia. COVID-19 Viral pneumonia * Symptomatic for approximately 2 weeks * FiO2 is at 1 L/min to keep oxygen sats in the low 90s or above * Labs stable, CRP decreasing * Remdesivir 08/01 * Dexamethasone 08/06 * Rocephin 08/01 * Completed Azithromycin Plan * Admit to medical floor on strict isolation * Continue remdesivir, dexamethasone, Rocephin, azithromycin * Continue aspirin, melatonin, zinc, Pepcid, and vitamin D * FiO2 to keep SPO2 greater than 88% * Follow liver enzymes daily * Consult RT * Airborne/contact isolation Mild hyponatremia, Resolved * Sodium 134-->141 * Likely secondary to poor intake * Given a liter of NS bolus in the emergency department * Follow labs Plan * Follow daily Acute renal injuryresolved * Creatinine down 0.8 with estimated GFR greater than 60 * Likely secondary to hypovolemia Plan * Follow daily Possible UTI * 10- 20 WBCs but 5-10 epithelial cells. Consider contamination * Patient on Rocephin for Covid Plan * Continue Rocephin Hyperglycemia * Blood glucose readings of 120-130s * Likely 2/2 steroid Plan * Monitor Chronic: Hard of hearing, familial tremors, anxiety and depression. Plan continue home meds VTE prophylaxis with Lovenox CODE STATUS full code
[2020-08-04] MEDS: Cholecalciferol (Vitamin D3) 5,000 UNIT Cap PO SCH (08:24)
[2020-08-04] MEDS: Aspirin 325 MG Tab.EC PO SCH (08:25)
[2020-08-04] MEDS: Zinc Sulfate 220 MG Cap PO SCH (08:26)
[2020-08-04] MEDS: Famotidine 20 MG Tab PO SCH ×2 (08:26→21:09)
[2020-08-04] MEDS: Dexamethasone 4 MG Tab PO SCH (08:27)
[2020-08-04] MEDS: Enoxaparin 40 MG/0.4 ML Syringe SUBCUT SCH (08:28)
[2020-08-04] MEDS ORDERED: REMDESIVIR 100 MG in Sodium Chloride 0.9% 100 ML IV ONE (14:00)
[2020-08-04] MEDS: cefTRIAXone 2 GM in Sodium Chloride 0.9% 100 ML IV SCH (17:18)
[2020-08-04] MEDS: Melatonin 3 MG Tab PO SCH (21:08)
[2020-08-04] MEDS: DULoxetine 30 MG Cap PO SCH (21:09)
[2020-08-04] MEDS: Propranolol 60 MG Cap.ER PO SCH (21:09)
--- NOTE | 2020-08-04 22:02 | PCM.HP.2 ---
H&P History of Present Illness - General Date of Service: 08/01/20 Admit Problem/Dx: COVID-19 positive test (U07.1, COVID-19) with Acute Pneumonia (J12.89, Other viral pneumonia) - History of Present Illness Initial Comments - Free Text/Narative: 55-year-old female with 2-week history of cough, body aches, fever, chills, generalized weakness. Patient states that she was exposed to a family with Covid approximately that time. Recent she is coughed so hard that she has been passing out. She has not had any head or neck injury secondary to falls. She has decreased appetite and some nausea. She denies any chest pain, shortness of breath, or palpitations. Generalized malaise and weakness has become severe over the last few days. - Related Data Allergies/Adverse Reactions: Allergies Allergy/AdvReac Type Severity Reaction Status Date / Time Sulfa (Sulfonamide Allergy Rash Verified 08/01/20 18:08 Antibiotics) Home Medications: Home Meds Cholecalciferol (Vitamin D3) [Vitamin D3] 1,000 unit PO DAILY 12/25/18 [History] Cinnamon Bark [Cinnamon] 1 tab PO BID 12/25/18 [History] DULoxetine [Cymbalta] 60 mg PO BEDTIME 12/25/18 [History] Multivit-Min/Iron/Folic/Lutein [Multivitamin Women 50 Plus Tab] 1 tab PO DAILY 12/25/18 [History] Edwards-3/DHA/Epa/Fish Oil [Edwards 3 500 Softgel] 1 tab PO BID 12/25/18 [History] Vitamin B Complex [B Complex] 1 tab PO BID 12/25/18 [History] Propranolol HCl [Propranolol HCl ER] 120 mg PO BEDTIME 08/02/20 [History] Past Medical History HEENT History: Reports: Hard of Hearing, Other (See Below) Other HEENT History: wears glasses 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 (See Below) Other OB/BYN History: benign lumps removed from breast Musculoskeletal History: Reports: Fracture Other Musculoskeletal History: back surgery Neurological History: Reports: Migraines, Other (See Below) Other Neuro History: familiar tremors Psychiatric History: Reports: Anxiety, Depression Endocrine/Metabolic History: Reports: Obesity/BMI 30+ Oncologic (Cancer) History: Reports: Other (See Below) Other Oncologic History: benign lumps removed from right breast - Infectious Disease History Infectious Disease History: Reports: Chicken Pox, Influenza, Novel Coronavirus - Past Surgical History HEENT Surgical History: Reports: Oral Surgery, Tonsillectomy Endocrine Surgical History: Reports: None Neurological Surgical History: Reports: Lumbar Spine Musculoskeletal Surgical History: Reports: None Oncologic Surgical History: Reports: Biopsy of Breast Social & Family History - Family History Family Medical History: No Pertinent Family History - Tobacco Use Tobacco Use Status *Q: Never Tobacco User Second Hand Smoke Exposure: No - Caffeine Use Caffeine Use: Reports: Tea - Recreational Drug Use Recreational Drug Use: No - Living Situation & Occupation Living situation: Reports: , with Family (Daughter & son) 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 Exam - Exam Exam: See Below - Vital Signs Vital Signs: Last Vital Signs Temp 97.9 F 08/04/20 19:15 Pulse 70 08/04/20 19:15 Resp 18 08/04/20 19:15 BP 104/60 08/04/20 19:15 Pulse Ox 92 L 08/04/20 19:15 Weight: 187 lb 12.8 oz - Exam Quality Assessment: Supplemental Oxygen General: Alert, Oriented, 4 HEENT: Conjunctiva Clear, EOMI, Hearing Intact, Mucosa Moist & [place], Nares Patent, Normal Nasal Septum, TMs Clear, PERRLA Lungs: Normal Respiratory Effort, Rales Cardiovascular: Regular Rate, Regular Rhythm GI/Abdominal Exam: Normal Bowel Sounds (Bibasilar), Soft, Non-Tender, No Organomegaly, No Distention, No Abnormal Bruit, No Mass, Pelvis Stable Extremities: Normal Inspection, Normal Range of Motion, Non-Tender, No Pedal Edema, Normal Capillary Refill Peripheral Pulses: 2+: Posterior Tibial (L), Posterior Tibial (R), Dorsalis Pedis (L), Dorsalis Pedis (R) Skin: Warm, Dry, Intact Neuro Extensive - Mental Status: Alert, Oriented x3, Normal Mood/Affect, Normal Cognition Neuro Extensive - Motor, Sensory, Reflexes: CN II-XII Intact Psychiatric: Alert, Normal Affect, Normal Mood - Patient Data Lab Results Last 24 hrs: Laboratory Results - last 24 hr 08/04/20 08/04/20 08/04/20 Range/Units 04:59 04:59 04:59 WBC 6.36 (3.98-10.04) K/mm3 RBC 4.07 (3.98-5.22) M/mm3 Hgb 11.2 (11.2-15.7) gm/dl Hct 35.9 (34.1-44.9) % MCV 88.2 (79.4-94.8) fl MCH 27.5 (25.6-32.2) pg MCHC 31.2 L (32.2-35.5) g/dl RDW Std Deviation 44.5 (36.4-46.3) fL Plt Count 290 (182-369) K/mm3 MPV 10.5 (9.4-12.3) fl Neut % (Auto) 68.9 (34.0-71.1) % Lymph % (Auto) 19.8 (19.3-51.7) % Stevens % (Auto) 10.8 (4.7-12.5) % Eos % (Auto) 0 L (0.7-5.8) Baso % (Auto) 0.2 (0.1-1.2) % Neut # (Auto) 4.38 (1.56-6.13) K/mm3 Lymph # (Auto) 1.26 (1.18-3.74) K/mm3 Stevens # (Auto) 0.69 H (0.24-0.36) K/mm3 Eos # (Auto) 0.00 L (0.04-0.36) K/mm3 Baso # (Auto) 0.01 (0.01-0.08) K/mm3 D-Dimer, Quantitative 0.49 (0.19-0.50) mg/L Sodium 141 (136-145) mEq/L Potassium 4.2 (3.5-5.1) mEq/L Chloride 107 (98-107) mEq/L Carbon Dioxide 26 (21-32) mEq/L Anion Gap 12.2 (5-15) BUN 22 H (7-18) mg/dL Creatinine 0.8 (0.55-1.02) mg/dL Est Cr Clr Drug Dosing 73.03 mL/min Estimated GFR (MDRD) > 60 (>60) mL/min BUN/Creatinine Ratio 27.5 H (14-18) Glucose 127 H (74-106) mg/dL Calcium 8.6 (8.5-10.1) mg/dL Phosphorus 4.2 (2.6-4.7) mg/dL Magnesium 2.0 (1.8-2.4) mg/dl Total Bilirubin 0.3 (0.2-1.0) mg/dL AST 20 (15-37) U/L ALT 33 (14-59) U/L Alkaline Phosphatase 119 H (46-116) U/L C-Reactive Protein 5.2 H* (<1.0) mg/dL Total Protein 6.3 L (6.4-8.2) g/dl Albumin 2.5 L (3.4-5.0) g/dl Globulin 3.8 gm/dL Albumin/Globulin Ratio 0.7 L (1-2) Result Diagrams: 08/04/20 04:59 08/04/20 04:59 Sepsis Event Note - Evaluation Sepsis Screening Result: No Definite Risk - Focused Exam Vital Signs: Vital Signs Temp Pulse Resp BP Pulse Ox Pulse Ox 08/04/20 19:15 97.9 F 70 18 104/60 92 L 08/04/20 16:38 96 08/04/20 14:22 97.9 F 57 L 16 121/63 93 L 08/04/20 12:34 97.9 F 61 16 123/59 L 92 L - Problem List (1) COVID-19 SNOMED Code(s): 110175004 ICD Code: U07.1 - COVID-19 Status: Acute Priority: High Current Visit: Yes (2) Hypoxia SNOMED Code(s): 771618061 ICD Code: R09.02 - HYPOXEMIA Status: Acute Priority: High Current Visit: Yes (3) Pneumonia due to COVID-19 virus SNOMED Code(s): 370743363664734962 ICD Code: U07.1 - COVID-19; J12.82 - PNEUMONIA DUE TO CORONAVIRUS DISEASE 2019 Status: Acute Priority: High Current Visit: Yes Problem List Initiated/Reviewed/Updated: Yes Orders Last 24hrs: Active Orders 24 hr Category Date Time Status C-REACTIVE PROTEIN [CHEM] AM Lab 08/05/20 05:11 Ordered C-REACTIVE PROTEIN [CHEM] AM Lab 08/06/20 05:11 Ordered C-REACTIVE PROTEIN [CHEM] AM Lab 08/07/20 05:11 Ordered CBC WITH AUTO DIFF [HEME] AM Lab 08/05/20 05:11 Ordered CBC WITH AUTO DIFF [HEME] AM Lab 08/06/20 05:11 Ordered CBC WITH AUTO DIFF [HEME] AM Lab 08/07/20 05:11 Ordered CMP [COMPREHENSIVE METABOLIC PN,CMP] [CHEM] AM Lab 08/05/20 05:11 Ordered CMP [COMPREHENSIVE METABOLIC PN,CMP] [CHEM] AM Lab 08/06/20 05:11 Ordered CMP [COMPREHENSIVE METABOLIC PN,CMP] [CHEM] AM Lab 08/07/20 05:11 Ordered DD [D-DIMER QUANTITATIVE] [COAG] AM Lab 08/05/20 05:11 Ordered DD [D-DIMER QUANTITATIVE] [COAG] AM Lab 08/06/20 05:11 Ordered DD [D-DIMER QUANTITATIVE] [COAG] AM Lab 08/07/20 05:11 Ordered MAGNESIUM [CHEM] AM Lab 08/05/20 05:11 Ordered MAGNESIUM [CHEM] AM Lab 08/06/20 05:11 Ordered MAGNESIUM [CHEM] AM Lab 08/07/20 05:11 Ordered PHOSPHORUS [CHEM] AM Lab 08/05/20 05:11 Ordered PHOSPHORUS [CHEM] AM Lab 08/06/20 05:11 Ordered PHOSPHORUS [CHEM] AM Lab 08/07/20 05:11 Ordered Remdesivir 100 mg Med 08/05/20 12:00 Active Sodium Chloride 0.9% [Normal Saline] 100 ml IV ONETIME Medication Orders Acetaminophen (Acetaminophen 325 Mg Tab) 650 mg PO Q4H PRN PRN Reason: Pain (Mild 1-3)/fever Albuterol (Albuterol 6.7 Gm Inhaler) 0 gm INH Q2H PRN PRN Reason: Shortness of Breath Aspirin (Aspirin 325 Mg Tab.Ec) 325 mg PO DAILY [facility] Last Admin: 08/04/20 08:25 Dose: 325 mg Documented by: Admin: 08/03/20 09:20 Dose: 325 mg Documented by: Admin: 08/02/20 08:25 Dose: 325 mg Documented by: Admin: 08/01/20 18:29 Dose: 325 mg Documented by: MARCOS Benzonatate (Benzonatate 100 Mg Cap) 100 mg PO QID PRN PRN Reason: Cough Cholecalciferol (Cholecalciferol (Vitamin D3) 5,000 Unit Cap) 5,000 unit PO DAILY [facility] Last Admin: 08/04/20 08:24 Dose: 5,000 unit Documented by: Admin: 08/03/20 09:20 Dose: 5,000 unit Documented by: Admin: 08/02/20 08:25 Dose: 5,000 unit Documented by: Admin: 08/01/20 18:29 Dose: 5,000 unit Documented by: MARCOS Dexamethasone (Dexamethasone 4 Mg Tab) 6 mg PO DAILY [facility] Stop: 08/10/20 09:01 Last Admin: 08/04/20 08:27 Dose: 6 mg Documented by: Admin: 08/03/20 09:20 Dose: 6 mg Documented by: Admin: 08/02/20 08:24 Dose: 6 mg Documented by: YOBANI Duloxetine HCl (Duloxetine 30 Mg Cap) 60 mg PO BEDTIME [facility] Last Admin: 08/04/20 21:09 Dose: 60 mg Documented by: Admin: 08/03/20 21:04 Dose: 60 mg Documented by: Admin: 08/02/20 21:09 Dose: 60 mg Documented by: ROSE MARY Enoxaparin Sodium (Enoxaparin 40 Mg/0.4 Ml Syringe) 40 mg SUBCUT DAILY [facility] Last Admin: 08/04/20 08:28 Dose: 40 mg Documented by: Admin: 08/03/20 09:20 Dose: 40 mg Documented by: Admin: 08/02/20 08:25 Dose: 40 mg Documented by: YOBANI Famotidine (Famotidine 20 Mg Tab) 20 mg PO BID [facility] Last Admin: 08/04/20 21:09 Dose: 20 mg Documented by: Admin: 08/04/20 08:26 Dose: 20 mg Documented by: Admin: 08/03/20 21:03 Dose: 20 mg Documented by: Admin: 08/03/20 09:20 Dose: 20 mg Documented by: Admin: 08/02/20 21:10 Dose: Not Given Documented by: ROSE MARY Admin: 08/02/20 08:25 Dose: 20 mg Documented by: Admin: 08/01/20 20:31 Dose: Not Given Documented by: ROSE MARY Guaifenesin/Codeine Phosphate (Codeine/Guaifenesin 10-100 Mg/5 Ml Syrup 5 Ml Cup) 5 ml PO Q4H PRN PRN Reason: Cough Ceftriaxone Sodium 2 gm/ (Sodium Chloride) 100 mls @ 200 mls/hr IV Q24H [facility] Stop: 08/05/20 18:14 Last Admin: 08/04/20 17:18 Dose: 200 mls/hr Documented by: Infusion: 08/03/20 18:24 Dose: 200 mls/hr Documented by: Admin: 08/03/20 17:54 Dose: 200 mls/hr Documented by: Infusion: 08/02/20 18:23 Dose: 200 mls/hr Documented by: Admin: 08/02/20 17:53 Dose: 200 mls/hr Documented by: Infusion: 08/01/20 18:59 Dose: 200 mls/hr Documented by: Admin: 08/01/20 18:29 Dose: 200 mls/hr Documented by: MARCOS Remdesivir 100 mg/ Sodium (Chloride) 100 mls @ 100 mls/hr IV ONETIME ONE Stop: 08/05/20 12:59 Ibuprofen (Ibuprofen 600 Mg Tab) 600 mg PO Q6H PRN PRN Reason: Pain (moderate 4-6) Melatonin (Melatonin 3 Mg Tab) 9 mg PO BEDTIME [facility] Last Admin: 08/04/20 21:08 Dose: 9 mg Documented by: Admin: 08/03/20 21:04 Dose: 9 mg Documented by: Admin: 08/02/20 21:10 Dose: Not Given Documented by: ROSE MARY Admin: 08/01/20 20:31 Dose: Not Given Documented by: ROSE MARY Ondansetron HCl (Ondansetron 4 Mg/2 Ml Sdv) 4 mg IV Q4H PRN PRN Reason: Nausea/Vomiting Propranolol HCl (Propranolol 60 Mg Cap.Er) 120 mg PO BEDTIME [facility] Last Admin: 08/04/20 21:09 Dose: 120 mg Documented by: Admin: 08/03/20 21:02 Dose: 120 mg Documented by: Admin: 08/02/20 21:09 Dose: 120 mg Documented by: [id number] Sodium Chloride (Sodium Chloride 0.9% 10 Ml Syringe) 10 ml FLUSH ASDIRECTED PRN PRN Reason: Keep Vein Open Last Admin: 08/01/20 13:43 Dose: 10 ml Documented by: KJ Zinc Sulfate (Zinc Sulfate 220 Mg Cap) 220 mg PO DAILY [facility] Last Admin: 08/04/20 08:26 Dose: 220 mg Documented by: Admin: 08/03/20 09:20 Dose: 220 mg Documented by: Admin: 08/02/20 08:24 Dose: 220 mg Documented by: Admin: 08/01/20 18:29 Dose: 220 mg Documented by: MARCOS Assessment/Plan Comment:: Assessment 55-year-old female that was exposed to someone with Covid approximately 2 weeks ago has been symptomatic for about that long. She was Covid positive in the ER. Oxygen saturations were in the low 90s at rest and dropped into the 80s with activity. Chest x-ray is consistent with Covid pneumonia. COVID-19 Viral pneumonia * Symptomatic for approximately 2 weeks * Day BC 6, creatinine 1.1, glucose 136, C-reactive protein 15.2, alkaline phosphatase 119, LDH 258, albumin 2.8 * Given remdesivir and dexamethasone first doses in the ER Plan * Admit to medical floor on strict isolation * Remdesivir, dexamethasone, Rocephin, azithromycin * Aspirin, melatonin, zinc, Pepcid, and vitamin D * FiO2 to keep SPO2 greater than 88% * Follow liver enzymes daily Mild hyponatremia * Sodium 13 * Likely secondary to poor intake * Given a liter of NS bolus in the emergency department Plan * Follow daily Acute renal injury * Creatinine 1.1 with estimated GFR 51 * Likely secondary to hypovolemia Plan * Cautiously rehydrate * Follow daily Possible UTI * 10- 20 WBCs but 5-10 epithelial cells. Consider contamination * Patient on Rocephin for Covid Plan * Urine culture * Continue Rocephin Chronic: Hard of hearing, familial tremors, anxiety and depression. Plan continue home meds VTE prophylaxis with Lovenox CODE STATUS full code - Mortality Measure Prognosis:: Good
[2020-08-05] MEDS: Famotidine 20 MG Tab PO SCH (09:32)
[2020-08-05] MEDS: Cholecalciferol (Vitamin D3) 5,000 UNIT Cap PO SCH (09:32)
[2020-08-05] MEDS: Zinc Sulfate 220 MG Cap PO SCH (09:32)
[2020-08-05] MEDS: Enoxaparin 40 MG/0.4 ML Syringe SUBCUT SCH (09:32)
[2020-08-05] MEDS: Aspirin 325 MG Tab.EC PO SCH (09:32)
[2020-08-05] MEDS: Dexamethasone 4 MG Tab PO SCH (09:32)
--- NOTE | 2020-08-05 09:52 | PCM.DCSUM1 ---
Discharge Summary - Hospital Course HPI Initial Comments: 55-year-old female with 2-week history of cough, body aches, fever, chills, generalized weakness. Patient states that she was exposed to a family with Covid approximately that time. Recent she is coughed so hard that she has been passing out. She has not had any head or neck injury secondary to falls. She has decreased appetite and some nausea. She denies any chest pain, shortness of breath, or palpitations. Generalized malaise and weakness has become severe over the last few days. Diagnosis: Stroke: No - Discharge Data Discharge Date: 08/05/20 (Admit date: 08/01/2020) Discharge Disposition: Home, Self-Care 01 Condition: Good - Referral to Home Health Primary Care Physician: Unique Porter NP - Discharge Diagnosis/Problem(s) (1) Hyponatremia SNOMED Code(s): 33031873 ICD Code: E87.1 - HYPO-OSMOLALITY AND HYPONATREMIA Status: Resolved Priority: Medium Current Visit: Yes (2) COVID-19 SNOMED Code(s): 471149031 ICD Code: U07.1 - COVID-19 Status: Acute Priority: High Current Visit: Yes (3) Hypoxia SNOMED Code(s): 798666310 ICD Code: R09.02 - HYPOXEMIA Status: Acute Priority: High Current Visit: Yes (4) Pneumonia due to COVID-19 virus SNOMED Code(s): 201627198108450272 ICD Code: U07.1 - COVID-19; J12.82 - PNEUMONIA DUE TO CORONAVIRUS DISEASE 2018 Status: Acute Priority: High Current Visit: Yes (5) Viral pneumonia SNOMED Code(s): 88468221 ICD Code: J12.9 - VIRAL PNEUMONIA, UNSPECIFIED Status: Acute Priority: High Current Visit: Yes (6) BIBI (acute kidney injury) SNOMED Code(s): 97469427, 27601873 ICD Code: N17.9 - ACUTE KIDNEY FAILURE, UNSPECIFIED Status: Resolved Priority: High Current Visit: Yes (7) Elevated d-dimer SNOMED Code(s): 141534222 ICD Code: R79.89 - OTHER SPECIFIED ABNORMAL FINDINGS OF BLOOD CHEMISTRY Status: Resolved Priority: High Current Visit: Yes (8) Hyperglycemia SNOMED Code(s): 79424319 ICD Code: R73.9 - HYPERGLYCEMIA, UNSPECIFIED Status: Acute Priority: Medium Current Visit: Yes - Patient Summary/Data Consults: Consultations 08/01/20 17:25 Respiratory Care Assess and Treatment [CONS] Routine Labs Pending at D/C: None Recommended Follow-up Testing/Procedures: Follow-up with primary care provider within 7-10 days of discharge, sooner if needed. -Recommend repeat CBC, CMP, Magnesium at that visit -Consider repeat CXR Hospital Course: This is a 55-year-old female with a history of familial tremors, anxiety and depression who presents to ED on 08/01/2020 with Covid-like symptoms. She reports she was exposed to somebody approximately 2 weeks prior who is known Covid positive and she shortly thereafter began having symptoms. In the ED oxygen saturations were noted to be low 90s at rest and dropped into the 80s with activity. She was given a chest x-ray which was consistent with Covid pneumonia. On admission she was requiring 1 L and that her worse was requiring 2 L. She was given 5 days worth of remdesivir, 5 days worth of dexamethasone, 5 days worth of Rocephin, and 3 days of azithromycin. She is also started on 325 mg daily aspirin, 9 mg melatonin, 220 mg zinc, Pepcid, and 5000 unit vitamin D supplementation. Patient had been receiving vitamin D supplementation prior. She was noted to have mild hyponatremia on admission at 134 and this did improve after a 1 L fluid bolus given in the emergency department. She is also having noted acute renal injury at that time and her labs did respond well to her fluid bolus. Urine showed 10-20 WBCs but also 5-10 epithelial cells which was likely contamination. Because patient was going to receive Rocephin for her Covid anyways this was not worked up further. Patient was also denying any urinary symptoms. Patient is noted to have mild hyperglycemia with a blood sugar of 120s to 130s which was likely exacerbated by patient's MX his own. She was utilizing incentive spirometry and Acapella were here and was encouraged to prone frequently. She was ambulating around the room. She was able to be weaned off oxygen prior to discharge. She continued to report weakness, malaise, and occasional dizziness but otherwise was doing quite well. We discussed how the symptoms will likely continue for quite some time. She was i nstructed to continue to utilize her incentive spirometry and Acapella for 1 to 2 weeks or until symptoms resolve. She was advised to continue to quarantine/isolate for total of 20 days from symptom onset. She was prescribed 30 days of 325 mg ASA, 9 mg melatonin at bedtime, and 2 in 20 mg zinc supplement at discharge. She was instructed to continue utilizing her home vitamin D supplementation. She was directed to stay active. She was advised to return to the emergency room or contact her primary care provider should symptoms return or worsen. Recommend follow-up PCP appointment within 7 to 10 days of discharge, sooner if needed. Recommend repeat CBC, CMP, and magnesium at that time. Consider repeat chest x-ray at that time as well. Otherwise she was doing quite well and discharged home today. - Patient Instructions Diet: Usual Diet as Tolerated Activity: As Tolerated Driving: Do Not Drive (until feeling better ) Showering/Bathing: May Shower Notify Provider of: Fever, Increased Pain, Nausea and/or Vomiting Other/Special Instructions: Follow-up with primary care provider within 7-10 days of discharge, sooner if needed. Continue to utilize your incentive spirometer (clear/blue device you inhale through) and acapella (green tube you blow through) for 1-2 weeks or until symptoms resolve. Continue to prone (lay on your stomach) whenever able. You should continue to isolate/quarantine for a total of 20 days from symptom onset. You will likely be contacted by a piano case and bench assembler from the [facility]. Follow their directions. You completed your main treatment for COVID-19. You will not be prescribed any antibotics while here. We prescribed some zinc and melatonin supplements. Some studies are suggesting that this can help with COVID-19. Continue taking your vitamin D supplementation. We also started you on a full dose daily aspirin for COVID-19. You should take this for a month unless directed otherwise by a healthcare provider. Should symptoms return or worsen contact primary care provider or return to the emergency department. - Discharge Plan *PRESCRIPTION DRUG MONITORING PROGRAM REVIEWED*: No *COPY OF PRESCRIPTION DRUG MONITORING REPORT IN PATIENT YOSHI: No Prescriptions/Med Rec: Aspirin [Ecotrin EC] 325 mg PO DAILY #30 tab.ec Melatonin 9 mg PO BEDTIME #30 tablet Zinc Sulfate [Zincate] 220 mg PO DAILY #20 cap Home Medications: Home Meds Cholecalciferol (Vitamin D3) [Vitamin D3] 1,000 unit PO DAILY 12/25/18 [History] Cinnamon Bark [Cinnamon] 1 tab PO BID 12/25/18 [History] DULoxetine [Cymbalta] 60 mg PO BEDTIME 12/25/18 [History] Multivit-Min/Iron/Folic/Lutein [Multivitamin Women 50 Plus Tab] 1 tab PO DAILY 12/25/18 [History] [place]-3/DHA/Epa/Fish Oil [[place] 3 500 Softgel] 1 tab PO BID 12/25/18 [History] Vitamin B Complex [B Complex] 1 tab PO BID 12/25/18 [History] Propranolol HCl [Propranolol HCl ER] 120 mg PO BEDTIME 08/02/20 [History] Aspirin [Ecotrin EC] 325 mg PO DAILY #30 tab.ec 08/05/20 [Rx] Melatonin 9 mg PO BEDTIME #30 tablet 08/05/20 [Rx] Zinc Sulfate [Zincate] 220 mg PO DAILY #20 cap 08/05/20 [Rx] Oxygen Therapy Mode: Room Air Patient Handouts: COVID-19, How to Use an Incentive Spirometer, 10 Things You Can Do to Manage Your COVID-19 Symptoms at Home - CDC, Sepsis, Diagnosis, Adult, COVID-19: How to Protect Yourself and Others - CDC Forms: ED Department Discharge Referrals: Unique Porter NP [Primary Care Provider] - 08/17/20 10:15 am (Hospital follow-up appointment. If you prefer a different provider, please call your preferred clinic to schedule with another provider.) - Discharge Summary/Plan Comment DC Time >30 min.: Yes (45 minute) - General Info Date of Service: 08/05/20 Admission Dx/Problem (Free Text: COVID-19 positive test (U07.1, COVID-19) with Acute Pneumonia (J12.89, Other viral pneumonia) Functional Status: Reports: Pain Controlled, Tolerating Diet, Ambulating, Urina ting, Incentive Spirometry, Other (Acapella ). Denies: New Symptoms - Review of Systems General: Reports: Weakness, Fatigue, Malaise. Denies: Fever, Chills HEENT: Reports: No Symptoms. Denies: Headaches, Sore Throat Pulmonary: Reports: Shortness of Breath, Cough. Denies: Sputum, Hemoptysis, Wheezing Cardiovascular: Reports: Dyspnea on Exertion. Denies: Chest Pain, Palpitations Gastrointestinal: Reports: No Symptoms. Denies: Abdominal Pain, Constipation, Diarrhea, Nausea, Vomiting Genitourinary: Reports: No Symptoms. Denies: Pain Musculoskeletal: Reports: No Symptoms Skin: Reports: No Symptoms. Denies: Cyanosis Neurological: Reports: Tremors (baseline ), Weakness. Denies: Confusion, Trouble Speaking, Difficulty Walking, Gait Disturbance Psychiatric: Reports: No Symptoms - Patient Data Vitals - Most Recent: Last Vital Signs Temp 98.1 F 08/05/20 07:58 Pulse 53 L 08/05/20 07:58 Resp 16 08/05/20 07:58 BP 125/70 08/05/20 07:58 Pulse Ox 94 L 08/05/20 07:58 Weight - Most Recent: 185 lb 6.4 oz I&O - Last 24 hours: Intake & Output 08/04/20 08/05/20 08/05/20 22:59 06:59 14:59 Intake Total 1200 800 Output Total 2000 150 Balance -800 650 Lab Results - Last 24 hrs: Laboratory Results - last 24 hr 08/05/20 08/05/20 08/05/20 Range/Units 05:53 05:53 05:53 WBC 6.43 (3.98-10.04) K/mm3 RBC 4.29 (3.98-5.22) M/mm3 Hgb 11.6 (11.2-15.7) gm/dl Hct 37.4 (34.1-44.9) % MCV 87.2 (79.4-94.8) fl MCH 27.0 (25.6-32.2) pg MCHC 31.0 L (32.2-35.5) g/dl RDW Std Deviation 44.0 (36.4-46.3) fL Plt Count 334 (182-369) K/mm3 MPV 9.9 (9.4-12.3) fl Neut % (Auto) 59.6 (34.0-71.1) % Lymph % (Auto) 26.1 (19.3-51.7) % Swain % (Auto) 13.7 H (4.7-12.5) % Eos % (Auto) 0.2 L (0.7-5.8) Baso % (Auto) 0.2 (0.1-1.2) % Neut # (Auto) 3.84 (1.56-6.13) K/mm3 Lymph # (Auto) 1.68 (1.18-3.74) K/mm3 Swain # (Auto) 0.88 H (0.24-0.36) K/mm3 Eos # (Auto) 0.01 L (0.04-0.36) K/mm3 Baso # (Auto) 0.01 (0.01-0.08) K/mm3 D-Dimer, Quantitative 0.64 H (0.19-0.50) mg/L Sodium 144 (136-145) mEq/L Potassium 4.2 (3.5-5.1) mEq/L Chloride 107 (98-107) mEq/L Carbon Dioxide 30 (21-32) mEq/L Anion Gap 11.2 (5-15) BUN 20 H (7-18) mg/dL Creatinine 0.8 (0.55-1.02) mg/dL Est Cr Clr Drug Dosing 73.03 mL/min Estimated GFR (MDRD) > 60 (>60) mL/min BUN/Creatinine Ratio 25.0 H (14-18) Glucose 97 (74-106) mg/dL Calcium 8.7 (8.5-10.1) mg/dL Phosphorus 4.0 (2.6-4.7) mg/dL Magnesium 2.1 (1.8-2.4) mg/dl Total Bilirubin 0.4 (0.2-1.0) mg/dL AST 25 (15-37) U/L ALT 35 (14-59) U/L Alkaline Phosphatase 110 (46-116) U/L C-Reactive Protein 3.3 H* (<1.0) mg/dL Total Protein 6.6 (6.4-8.2) g/dl Albumin 2.5 L (3.4-5.0) g/dl Globulin 4.1 gm/dL Albumin/Globulin Ratio 0.6 L (1-2) Med Orders - Current: Current Medications Acetaminophen (Acetaminophen 325 Mg Tab) 650 mg PO Q4H PRN PRN Reason: Pain (Mild 1-3)/fever Albuterol (Albuterol 6.7 Gm Inhaler) 0 gm INH Q2H PRN PRN Reason: Shortness of Breath Aspirin (Aspirin 325 Mg Tab.Ec) 325 mg PO DAILY [facility] Last Admin: 08/05/20 09:32 Dose: 325 mg Documented by: Benzonatate (Benzonatate 100 Mg Cap) 100 mg PO QID PRN PRN Reason: Cough Cholecalciferol (Cholecalciferol (Vitamin D3) 5,000 Unit Cap) 5,000 unit PO DAILY [facility] Last Admin: 08/05/20 09:32 Dose: 5,000 unit Documented by: Dexamethasone (Dexamethasone 4 Mg Tab) 6 mg PO DAILY [facility] Stop: 08/10/20 09:01 Last Admin: 08/05/20 09:32 Dose: 6 mg Documented by: Duloxetine HCl (Duloxetine 30 Mg Cap) 60 mg PO BEDTIME [facility] Last Admin: 08/04/20 21:09 Dose: 60 mg Documented by: Enoxaparin Sodium (Enoxaparin 40 Mg/0.4 Ml Syringe) 40 mg SUBCUT DAILY [facility] Last Admin: 08/05/20 09:32 Dose: 40 mg Documented by: Famotidine (Famotidine 20 Mg Tab) 20 mg PO BID [facility] Last Admin: 08/05/20 09:32 Dose: 20 mg Documented by: Guaifenesin/Codeine Phosphate (Codeine/Guaifenesin 10-100 Mg/5 Ml Syrup 5 Ml Cup) 5 ml PO Q4H PRN PRN Reason: Cough Remdesivir 100 mg/ Sodium (Chloride) 100 mls @ 100 mls/hr IV ONETIME ONE Stop: 08/05/20 12:59 Ceftriaxone Sodium 2 gm/ (Sodium Chloride) 100 mls @ 200 mls/hr IV ONETIME ONE Stop: 08/05/20 11:29 Ibuprofen (Ibuprofen 600 Mg Tab) 600 mg PO Q6H PRN PRN Reason: Pain (moderate 4-6) Melatonin (Melatonin 3 Mg Tab) 9 mg PO BEDTIME [facility] Last Admin: 08/04/20 21:08 Dose: 9 mg Documented by: Ondansetron HCl (Ondansetron 4 Mg/2 Ml Sdv) 4 mg IV Q4H PRN PRN Reason: Nausea/Vomiting Propranolol HCl (Propranolol 60 Mg Cap.Er) 120 mg PO BEDTIME [facility] Last Admin: 08/04/20 21:09 Dose: 120 mg Documented by: Sodium Chloride (Sodium Chloride 0.9% 10 Ml Syringe) 10 ml FLUSH ASDIRECTED PRN PRN Reason: Keep Vein Open Last Admin: 08/01/20 13:43 Dose: 10 ml Documented by: Zinc Sulfate (Zinc Sulfate 220 Mg Cap) 220 mg PO DAILY [facility] Last Admin: 08/05/20 09:32 Dose: 220 mg Documented by: Discontinued Medications Dexamethasone (Dexamethasone 4 Mg/Ml Sdv) 6 mg IVPUSH ONETIME ONE Stop: 08/01/20 16:11 Last Admin: 08/01/20 16:46 Dose: 6 mg Documented by: Sodium Chloride (Normal Saline) 1,000 mls @ 1,000 mls/hr IV .BOLUS [facility] Last Admin: 08/01/20 13:45 Dose: 1,000 mls/hr Documented by: Remdesivir 200 mg/ Sodium (Chloride) 250 mls @ 250 mls/hr IV ONETIME ONE Stop: 08/01/20 17:44 Last Admin: 08/01/20 16:49 Dose: 250 mls/hr Documented by: Remdesivir 100 mg/ Sodium (Chloride) 100 mls @ 100 mls/hr IV Q24H [facility] Stop: 08/05/20 16:59 Last Admin: 08/03/20 15:46 Dose: 100 mls/hr Documented by: Ceftriaxone Sodium 2 gm/ (Sodium Chloride) 100 mls @ 200 mls/hr IV Q24H [facility] Stop: 08/05/20 18:14 Last Admin: 08/04/20 17:18 Dose: 200 mls/hr Documented by: Azithromycin 500 mg/ Sodium (Chloride) 250 mls @ 250 mls/hr IV Q24H [facility] Stop: 08/03/20 18:44 Last Admin: 08/03/20 16:44 Dose: 250 mls/hr Documented by: Remdesivir 100 mg/ Sodium (Chloride) 100 mls @ 100 mls/hr IV ONETIME ONE Stop: 08/04/20 14:59 Last Admin: 08/04/20 13:00 Dose: 100 mls/hr Documented by: - Exam Quality Assessment: Reports: DVT Prophylaxis. Denies: Supplemental Oxygen General: Reports: Alert, Oriented, Cooperative, No Acute Distress HEENT: Reports: Pupils Equal, Pupils Reactive, Mucous Membr. Moist/[place] Neck: Reports: Supple, Trachea Midline Lungs: Reports: Normal Respiratory Effort, Decreased Breath Sounds. Denies: Crackles, Rhonchi, Wheezing Cardiovascular: Reports: Regular Rate, Regular Rhythm GI/Abdominal Exam: Normal Bowel Sounds, Soft, Non-Tender, No Distention (Female) Exam: Deferred Rectal (Female) Exam: Deferred Back Exam: Reports: Normal Inspection, Full Range of Motion Extremities: Normal Inspection, Normal Range of Motion, Non-Tender, No Pedal Edema, Normal Capillary Refill Skin: Reports: Warm, Dry, Intact Neurological: Reports: No New Focal Deficit Psy/Mental Status: Reports: Alert, Normal Affect, Normal Mood
[2020-08-05] MEDS ORDERED: cefTRIAXone 2 GM in Sodium Chloride 0.9% 100 ML IV ONE (11:00)
[2020-08-05] MEDS ORDERED: REMDESIVIR 100 MG in Sodium Chloride 0.9% 100 ML IV ONE (12:00)
== END 2020-08-05 16:18 | disposition home or self-care (01) | DRG 177 ==
LOC: JD.ED 12:48 → JD.MS 16:55
PROVIDERS: ADMIT Family Medicine; ATTEND Family Medicine
PROC: XW033E5 Introduction of Remdesivir Anti-infective into Peripheral Vein, Percutaneous Approach, New Technology Group 5 (ICD-10-PCS; principal; 2020-08-01)
PROC: 8E0ZXY6 Isolation (ICD-10-PCS; 2020-08-01)
DX: U07.1 COVID-19 (principal); J12.82 Pneumonia due to coronavirus disease 2019; E87.1 Hypo-osmolality and hyponatremia; N17.9 Acute kidney failure, unspecified; H91.90 Unspecified hearing loss, unspecified ear; F41.9 Anxiety disorder, unspecified; F32.9 Major depressive disorder, single episode, unspecified; E66.9 Obesity, unspecified; E86.1 Hypovolemia; Z88.2 Allergy status to sulfonamides; Z79.899 Other long term (current) drug therapy; Z68.29 Body mass index [BMI] 29.0-29.9, adult
CPT/HCPCS: 36415; 71045; 71045-26; 80053; 80076; 81001; 82306; 82728; 83605; 83615; 83735; 84100; 85025; 85379; 85610; 85730; 86140; 93005; 93010; 94667; 94668; 94761; 94762; 96374; 99222; 99232; 99233; 99239; 99284; 99285-25; A9270-GY; J0456; J0696; J1100; J1650; J7030; J7050; J8540; U0002

== ENCOUNTER 2021-04-24 08:34 | Day surgery (SDC) | payer MEDICAID ==
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
[~2021-04-24 08:34] MED LIST: Lactated Ringers 1,000 ML IV SCH; Lidocaine 1%/Sod Bicarbonate in NS 8.4% 1 ML Syringe IDERM PRN; Sodium Chloride 0.9% 10 ML Syringe FLUSH SCH
[2021-04-24] MEDS ORDERED: Bupivacaine 0.5% 30 ML SDV ONE ×2 (08:53→09:55)
[2021-04-24] MEDS ORDERED: HYDROmorphone 0.5 MG/0.5 ML Syringe ONE ×2 (08:54→10:29)
[2021-04-24] MEDS ORDERED: Dexamethasone 4 MG/ML 5 ML MDV ONE (08:54)
[2021-04-24] MEDS ORDERED: Propofol 200 MG/20 ML SDV ONE (08:54)
[2021-04-24] MEDS ORDERED: Ondansetron 4 MG/2 ML SDV ONE (08:54)
[2021-04-24] MEDS ORDERED: Lactated Ringers 1,000 ML ONE (08:54)
[2021-04-24] MEDS ORDERED: Ketorolac 30 MG/ML SDV ONE (08:54)
[2021-04-24] MEDS ORDERED: Midazolam 1 MG/ML 2 ML SDV ONE (08:54)
[2021-04-24] MEDS ORDERED: Rocuronium 50 MG/5 ML Vial ONE (08:54)
[2021-04-24] MEDS ORDERED: ceFAZolin 1 GM Vial ONE (08:54)
[2021-04-24] MEDS ORDERED: fentaNYL 250 MCG/5 ML SDV ONE (08:55)
[2021-04-24] MEDS ORDERED: ePHEDrine 50 MG/ML SDV IVPUSH PRN (09:54)
[2021-04-24] MEDS ORDERED: fentaNYL 100 MCG/2 ML SDV IVPUSH PRN (09:54)
[2021-04-24] MEDS ORDERED: HYDROmorphone 0.5 MG/0.5 ML Syringe IVPUSH PRN (09:54)
[2021-04-24] MEDS ORDERED: Midazolam 1 MG/ML 2 ML SDV IVPUSH PRN (09:54)
[2021-04-24] MEDS ORDERED: Ondansetron 4 MG/2 ML SDV IVPUSH PRN (09:54)
[2021-04-24] MEDS ORDERED: diphenhydrAMINE 50 MG/ML SDV IVPUSH PRN (09:54)
[2021-04-24] MEDS ORDERED: ePHEDrine 50 MG/ML SDV ONE (09:59)
--- NOTE | 2021-04-24 11:07 | PCM.POSTAN ---
POST ANESTHESIA ASSESSMENT - MENTAL STATUS Mental Status: Alert - VITAL SIGNS Vital Signs: Last Vital Signs Temp 97.2 053 Pulse 76 04/24/21 1053 Resp 17 04/24/21 1053 BP 96/40 04/24/21 1053 Pulse Ox 94% 04/24/21 105 - RESPIRATORY Respiratory Status: Respiratory Rate WNL, Airway Patent, O2 Saturation Stable, Supplemental Oxygen - CARDIOVASCULAR CV Status: Pulse Rate WNL, Blood Pressure Stable - GASTROINTESTINAL GI Status: No Symptoms - POST OP HYDRATION Hydration Status: Adequate & Stable
--- NOTE | 2021-04-24 11:14 | PCM48HPAN ---
Post Anesthesia Note - EVALUATION WITHIN 48HRS OF ANESTHETIC Vital Signs in Normal Range: Yes Patient Participated in Evaluation: Yes Respiratory Function Stable: Yes Airway Patent: Yes Cardiovascular Function Stable: Yes Hydration Status Stable: Yes Pain Control Satisfactory: Yes Nausea and Vomiting Control Satisfactory: Yes Mental Status Recovered: Yes Vital Signs: Last Vital Signs Temp 36.3 C 04/24/21 11:05 Pulse 71 04/24/21 11:05 Resp 14 04/24/21 11:05 BP 107/61 04/24/21 11:05 Pulse Ox 95 04/24/21 11:05
--- NOTE | 2021-04-24 11:20 | OR ---
DATE OF OPERATION: 04/24/2021 SURGEON: Elmo Villafana MD PREOPERATIVE DIAGNOSIS: Symptomatic cholelithiasis. POSTOPERATIVE DIAGNOSIS: Cholelithiasis. OPERATION PERFORMED: Laparoscopic cholecystectomy. ESTIMATED BLOOD LOSS: 10 mL. ANESTHESIA: General anesthesia and local consisting of 0.5 bupivacaine without epinephrine. COMPLICATIONS: None. INDICATION AND CONSENT: Ms. Smith is 55 yoF. She has been having intermittent epigastric and right upper quadrant pain for several months. Also has elevated alkaline phosphatase for some time now. The patient was evaluated and part of our evaluation included right upper quadrant ultrasound, which revealed 1.3 cm stone in the gallbladder neck concerning for symptomatic cholelithiasis and the patient was sent to my clinic. I discussed with her. I evaluated and recommended to proceed with laparoscopic cholecystectomy due to her symptoms. We discussed risks, benefits, and alternatives, and informed consent was obtained. DESCRIPTION OF PROCEDURE: The patient was taken to the operating room, placed in supine position. The patient was padded appropriately. SCDs were placed. Preop antibiotics were given and the patient was induced for general anesthesia and abdomen was prepped and draped in the usual sterile fashion. Then, time-out was performed and then we began the procedure by injecting local anesthetic in the infraumbilical position. Incision was made. Umbilical stalk was elevated and Veress needle was inserted. Abdomen was insufflated to 15 mmHg and then a 12 mm trocar was placed at this site under visualization of laparoscope. Abdomen was entered. Inspection was done. There was no injury through Veress needle or trocar insertion. The rest of the abdomen appeared normal. We placed 3 additional 5 mm trocars, 1 in the subxiphoid and 2 in the right subcostal after injection of local anesthetic at these sites. The patient was placed in slight reverse Trendelenburg position with left side down and then we began the procedure by elevating the gallbladder cranially and dissecting the triangle of Calot. Both cystic duct and cystic artery were skeletonized, and a critical angle of safety was reached. Then, both cystic artery and cystic ducts were clipped with 3 clips and transected such that 2 clips remained in situ. Then, the gallbladder was taken off the gallbladder fossa with electrosurgery. There was no bleeding. There was a slight perforation of the gallbladder allowing leakage of bile only slightly. Therefore, suction parlor maid was used to irrigate the perihepatic area and suctioned out. Then, the gallbladder was removed from the infraumbilical site. There were no other complications. The fascia at the infraumbilical incision was closed with 0 Vicryl stitches using Roshan-Ya device. Then, skin at all 4 sites was closed with 4-0 Monocryl, then Dermabond was placed. The patient tolerated the procedure well. After the procedure, the patient was extubated and taken to the recovery area. The patient will be allowed to return home and follow up in clinic in 2 weeks. MMODAL /[id number] YAEL
== END 2021-04-24 14:30 | disposition home or self-care (01) ==
LOC: JD.SDS 08:34
PROVIDERS: ATTEND Surgery
DX: K80.10 Calculus of gallbladder with chronic cholecystitis without obstruction (principal); F32.A Depression, unspecified; Z98.890 Other specified postprocedural states; Z79.899 Other long term (current) drug therapy; Z88.2 Allergy status to sulfonamides; Z91.09 Other allergy status, other than to drugs and biological substances
CPT/HCPCS: 47562; J0690; J1100; J1170; J1885; J2250; J2370; J2405; J2704; J2710; J3010; J3490; J7120; 00790

== ENCOUNTER 2023-11-26 21:21 | Emergency (ER) | payer MEDICAID ==
[2023-11-26 23:22] LABS: BASOPHILS ABSOLUTE AUTO 0.1 K/mm3 (0.0-0.2); BASOPHILS PERCENT AUTO 0.9 % (0.0-1.0); EOSINOPHILS ABSOLUTE AUTO 0.2 K/mm3 (0.0-0.4); EOSINOPHILS PERCENT AUTO 1.2 % (0.0-6.0); HEMATOCRIT 36.8 % (37.0-47.0); HEMOGLOBIN 11.9 gm/dl (12.0-16.0); IMMATURE GRAN ABSOLUTE AUTO 0.09 K/mm3 (0.00-0.05); IMMATURE GRAN PERCENT AUTO 0.7 % (0.0-0.4); LYMPHOCYTES ABSOLUTE AUTO 7.5 K/mm3 (1.0-4.8); LYMPHOCYTES PERCENT AUTO 57.8 % (24.0-44.0); MEAN CORPUSCULAR HGB CONC 32.3 g/dl (32.0-36.0); MEAN CORPUSCULAR VOLUME 86.6 fl (83.0-99.0); MEAN PLATELET VOLUME 9.2 fl (9.4-12.3); MONOCYTES ABSOLUTE AUTO 0.7 K/mm3 (0.0-0.8); MONOCYTES PERCENT AUTO 5.7 % (0.0-8.0); NEUTROPHILS ABSOLUTE AUTO 4.4 K/mm3 (1.8-7.7); NEUTROPHILS PERCENT AUTO 33.7 % (41.0-71.0); PLATELET COUNT,PLT 193 K/mm3 (150-400); RED BLOOD CELL COUNT 4.25 M/mm3 (4.10-5.30)
[2023-11-26] MEDS: Acetaminophen 325 MG Tab PO ONE (23:33)
[2023-11-26 23:40] LABS: INR 1.01; PROTHROMBIN TIME 10.7 SECONDS (9.7-12.0)
[2023-11-26 23:41] LABS: PTT,PARTIAL THROMBOPLSTIN TIME 28.6 SECONDS (21.7-31.4)
[2023-11-26 23:44] LABS: A/G RATIO 0.9 (1-2); ALANINE AMINOTRANSFERASE,ALT 19 U/L (14-59); ALBUMIN 3.4 g/dl (3.4-5.0); ALKALINE PHOSPHATASE 134 U/L (46-116); ASPARTATE AMNIOTRANSFERASE,AST 17 U/L (15-37); BILIRUBIN TOTAL 0.8 mg/dL (0.2-1.0); BLOOD UREA NITROGEN,BUN 19 mg/dL (7-18); BUN/CREATININE RATIO 17.3 (14-18); CALCIUM 9.3 mg/dL (8.5-10.1); CARBON DIOXIDE,CO2 26 mEq/L (21-32); CHLORIDE,CL 102 mEq/L (98-107); CREATININE 1.1 mg/dL (0.55-1.02); ESTIMATED GFR 58 mL/min (>60); GLUCOSE RANDOM 102 mg/dL (70-99); PROTEIN TOTAL,TP 7.4 g/dl (6.4-8.2); SODIUM,NA 135 mEq/L (136-145)
[2023-11-27 00:11] LABS: SLIDE REVIEW ABNORMAL SMEAR
== END 2023-11-27 01:28 | disposition home or self-care (01) ==
LOC: JD.ED 21:21
DX: R04.0 Epistaxis (principal); E66.9 Obesity, unspecified; Z88.2 Allergy status to sulfonamides; Z91.048 Other nonmedicinal substance allergy status; Z79.899 Other long term (current) drug therapy; Z86.16 Personal history of COVID-19
CPT/HCPCS: 36415; 80053; 85025; 85610; 85730; 99283; A9270